=== PATIENT | female | born 1960 | race Caucasian/White ===

== ENCOUNTER → 2016-12-22 | Outpatient (CLI) | payer OTHER ==
--- NOTE | 2016-12-22 15:23 | NM ---
EXAMINATION TYPE: NM bone scan whole body DATE OF EXAM: 12/22/2016 COMPARISON: NONE HISTORY: Myalgia per order. All over pain per patient. History of left ankle fracture last year. Delayed whole-body scanning was performed following the injection of 26 mCi Tc 99m MDP. Images acqui red 3 hours post injection. Whole body images in anterior posterior projection as well as spot images of the thorax abdomen and pelvis and bilateral knees and ankles are acquired. FINDINGS: There is no suspicious scintigraphic uptake to the bone to suggest osseous metastatic disease or othe r significant abnormality. Increased uptake at level of right knee joint is felt to reflect product o f moderate to advanced degenerative change. IMPRESSION: As above
== END ==
LOC: RADNMMAIN 10:59
PROVIDERS: ATTEND Family Medicine
DX: M79.1 Myalgia (principal)
CPT/HCPCS: 78306; A9503

== ENCOUNTER 2017-01-20 09:46 | Emergency (ER) | payer OTHER ==
[2017-01-20] MEDS ORDERED: SODIUM CHLORIDE 0.9% 1,000 ML IV STA (10:45)
--- NOTE | 2017-01-20 10:53 | ED ---
Arrhythmia/Palpitations HPI - General Chief Complaint: Arrhythmia/Palpitations Stated Complaint: Heart Palps/Lt Leg lump Time Seen by Provider: 01/20/17 10:02 Source: patient, family, RN notes reviewed Mode of arrival: ambulatory Limitations: no limitations - History of Present Illness Initial Comments: This is a 56-year-old female who presents with complaints of palpitations for the past 4 days he has slowed down now which she also is had some pain in the left calf with some anterior lateral swelling to the proximal leg. Her physician was concerned about blood clots. Additionally the patient is to start thyroid medication sometime near future. She denies any fevers chills sweats chest pain shortness breath or other symptoms at this time. MD Complaint: palpitations - Related Data Home Medications Medication Instructions Recorded Confirmed HYDROcodone/IBUPROFEN 7.5-200 0.25 tab PO TID PRN 01/20/17 01/20/17 [Vicoprofen] Ibuprofen [Motrin] 400 mg PO BID PRN 01/20/17 01/20/17 Omeprazole 20 mg PO DAILY 01/20/17 01/20/17 Allergies Allergy/AdvReac Type Severity Reaction Status Date / Time acetaminophen [From Tylenol] Allergy Unknown Verified 01/20/17 10:22 amoxicillin [Amoxicillin] Allergy Unknown Verified 01/20/17 10:22 bee pollen Allergy Anaphylaxis Verified 01/20/17 10:22 hydromorphone HCl Allergy Unknown Verified 01/20/17 10:22 [From Dilaudid] Iodinated Contrast- Oral and Allergy Swelling Verified 01/20/17 10:22 IV Dye plastic Allergy Rash/Hives Uncoded 01/20/17 09:59 Review of Systems ROS Statement: Those systems with pertinent positive or pertinent negative responses have been documented in the HPI. ROS Other: All systems not noted in ROS Statement are negative. Past Medical History Past Medical History: Asthma, GERD/Reflux History of Any Multi-Drug Resistant Organisms: None Reported Past Surgical History: Bladder Surgery, Cholecystectomy, Hysterectomy, Orthopedic Surgery, Tonsillectomy Past Psychological History: No Psychological Hx Reported Smoking Status: Former smoker Past Alcohol Use History: None Reported Past Drug Use History: None Reported General Exam - General Exam Comments Initial Comments: This is a well-developed well-nourished awake alert oriented 3 female Limitations: no limitations General appearance: alert, in no apparent distress Head exam: Present: atraumatic, normocephalic, normal inspection Eye exam: Present: normal appearance, PERRL, EOMI. Absent: scleral icterus, conjunctival injection, periorbital swelling ENT exam: Present: normal exam, mucous membranes moist Neck exam: Present: normal inspection. Absent: tenderness, meningismus, lymphadenopathy Respiratory exam: Present: normal lung sounds bilaterally. Absent: respiratory distress, wheezes, rales, rhonchi, stridor Cardiovascular Exam: Present: regular rate, normal rhythm, normal heart sounds. Absent: systolic murmur, diastolic murmur, rubs, gallop, clicks GI/Abdominal exam: Present: soft, normal bowel sounds. Absent: distended, tenderness, guarding, rebound, rigid Extremities exam: Present: full ROM, normal capillary refill, other (Mild Tenderness with no edema there is an area approximately 3 cm in diameter to the proximal anterior lateral leg with no color change is mildly fluctuant consistent with either hematoma or lipoma-type finding.). Absent: tenderness, pedal edema, joint swelling, calf tenderness Back exam: Present: normal inspection Neurological exam: Present: alert, oriented X3, CN II-XII intact Psychiatric exam: Present: normal affect, normal mood Skin exam: Present: warm, dry, intact, normal color. Absent: rash Course Vital Signs 01/20/17 01/20/17 09:55 11:02 Temperature 97.5 F L Pulse Rate 72 74 Respiratory 16 18 Rate Blood Pressure 128/71 99/64 O2 Sat by Pulse 96 97 Oximetry EKG Findings - EKG Results: EKG: interpreted by ALEJA, sinus rhythm (Sinus rhythm rate is 68 DE interval 158 QRS 72 QT since QTC of 368/[address]-T wave configuration.) Medical Decision Making - Medical Decision Making I did discuss findings with the patient she remains asymptomatic she'll be discharged. She is following up with her Dr. she will return when necessary - Lab Data Result diagrams: 01/20/17 10:14 01/20/17 10:14 Lab Results 01/20/17 01/20/17 01/20/17 Range/Units 10:14 10:14 10:14 WBC 6.2 (3.8-10.6) k/uL RBC 4.21 (3.80-5.40) m/uL Hgb 14.2 (11.4-16.0) gm/dL Hct 39.9 (34.0-46.0) % MCV 94.8 (80.0-100.0) fL MCH 33.8 (25.0-35.0) pg MCHC 35.7 (31.0-37.0) g/dL RDW 12.2 (11.5-15.5) % Plt Count 217 (150-450) k/uL Neutrophils % 62 % Lymphocytes % 29 % Monocytes % 4 % Eosinophils % 2 % Basophils % 1 % Neutrophils # 3.8 (1.3-7.7) k/uL Lymphocytes # 1.8 (1.0-4.8) k/uL Monocytes # 0.3 (0-1.0) k/uL Eosinophils # 0.2 (0-0.7) k/uL Basophils # 0.0 (0-0.2) k/uL PT (9.0-12.0) sec INR (<1.2) APTT (22.0-30.0) sec D-Dimer (<0.60) mg/L FEU Sodium 141 (137-145) mmol/L Potassium 3.9 (3.5-5.1) mmol/L Chloride 104 (98-107) mmol/L Carbon Dioxide 25 (22-30) mmol/L Anion Gap 12 mmol/L BUN 11 (7-17) mg/dL Creatinine 0.66 (0.52-1.04) mg/dL Est GFR (MDRD) Af Amer >60 (>60 ml/min/1.73 sqM) Est GFR (MDRD) Non-Af >60 (>60 ml/min/1.73 sqM) Glucose 139 H (74-99) mg/dL Calcium 9.6 (8.4-10.2) mg/dL Magnesium 1.7 (1.6-2.3) mg/dL Total Bilirubin 0.4 (0.2-1.3) mg/dL AST 39 H (14-36) U/L ALT 57 H (9-52) U/L Alkaline Phosphatase 96 (38-126) U/L Total Creatine Kinase 52 (30-135) U/L CK-MB (CK-2) 0.3 (0.0-2.4) ng/mL CK-MB (CK-2) Rel Index 0.6 Troponin I <0.012 (0.000-0.034) ng/mL Total Protein 7.7 (6.3-8.2) g/dL Albumin 4.5 (3.5-5.0) g/dL TSH 2.190 (0.465-4.680) mIU/L 01/20/17 Range/Units 10:14 WBC (3.8-10.6) k/uL RBC (3.80-5.40) m/uL Hgb (11.4-16.0) gm/dL Hct (34.0-46.0) % MCV (80.0-100.0) fL MCH (25.0-35.0) pg MCHC (31.0-37.0) g/dL RDW (11.5-15.5) % Plt Count (150-450) k/uL Neutrophils % % Lymphocytes % % Monocytes % % Eosinophils % % Basophils % % Neutrophils # (1.3-7.7) k/uL Lymphocytes # (1.0-4.8) k/uL Monocytes # (0-1.0) k/uL Eosinophils # (0-0.7) k/uL Basophils # (0-0.2) k/uL PT 10.3 (9.0-12.0) sec INR 1.0 (<1.2) APTT 25.9 (22.0-30.0) sec D-Dimer 0.60 H (<0.60) mg/L FEU Sodium (137-145) mmol/L Potassium (3.5-5.1) mmol/L Chloride (98-107) mmol/L Carbon Dioxide (22-30) mmol/L Anion Gap mmol/L BUN (7-17) mg/dL Creatinine (0.52-1.04) mg/dL Est GFR (MDRD) Af Amer (>60 ml/min/1.73 sqM) Est GFR (MDRD) Non-Af (>60 ml/min/1.73 sqM) Glucose (74-99) mg/dL Calcium (8.4-10.2) mg/dL Magnesium (1.6-2.3) mg/dL Total Bilirubin (0.2-1.3) mg/dL AST (14-36) U/L ALT (9-52) U/L Alkaline Phosphatase (38-126) U/L Total Creatine Kinase (30-135) U/L CK-MB (CK-2) (0.0-2.4) ng/mL CK-MB (CK-2) Rel Index Troponin I (0.000-0.034) ng/mL Total Protein (6.3-8.2) g/dL Albumin (3.5-5.0) g/dL TSH (0.465-4.680) mIU/L - Radiology Data Radiology results: report reviewed (I did review the imaging and reports no acute findings.), image reviewed Disposition Clinical Impression: Palpitations Disposition: HOME SELF-CARE Condition: Good Instructions: Palpitations (ED) Referrals: Jacinto Hendricks DO [Primary Care Provider] - 1-2 days
[2017-01-20 11:04] VITALS: RESP 18
[2017-01-20 11:09] LABS: Basophils % (A) 1 %; CH 33.4; CHCM 35.3; Eosinophils # (A) 0.2 k/uL (0-0.7); Eosinophils % (A) 2 %; HCT 39.9 % (34.0-46.0); HDW 2.49; HGB 14.2 gm/dL (11.4-16.0); Luc # (Auto) 0.15; Luc % (Auto) 2; Lymphocytes # (A) 1.8 k/uL (1.0-4.8); Lymphocytes % (A) 29 %; MCH 33.8 pg (25.0-35.0); MCHC 35.7 g/dL (31.0-37.0); MCV 94.8 fL (80.0-100.0); Mean Platelet Volume 7.5; Monocytes # (A) 0.3 k/uL (0-1.0); Monocytes % (A) 4 %; Neutrophils # (A) 3.8 k/uL (1.3-7.7); Neutrophils % (A) 62 %; RBC 4.21 m/uL (3.80-5.40); RDW 12.2 % (11.5-15.5); WBC 6.2 k/uL (3.8-10.6); WBC (Perox) 5.89
[2017-01-20 11:21] LABS: ALT 57 U/L (9-52); AST 39 U/L (14-36); Alkaline Phosphatase 96 U/L (38-126); Anion Gap 12 mmol/L; Blood Urea Nitrogen 11 mg/dL (7-17); Calcium 9.6 mg/dL (8.4-10.2); Carbon Dioxide 25 mmol/L (22-30); Chloride 104 mmol/L (98-107); Glucose 139 mg/dL (74-99); Magnesium 1.7 mg/dL (1.6-2.3); Non-African American GFR(MDRD) >60 (>60 ml/min/1.73 sqM); Potassium 3.9 mmol/L (3.5-5.1); Sodium 141 mmol/L (137-145); Total Bilirubin 0.4 mg/dL (0.2-1.3); Total Protein 7.7 g/dL (6.3-8.2)
--- NOTE | 2017-01-20 11:23 | XR ---
EXAMINATION TYPE: XR chest 2V DATE OF EXAM: 01/20/2017 COMPARISON: 06/26/2012 HISTORY: 56-year-old female with dysrhythmia TECHNIQUE: PA and lateral views FINDINGS: Heart is normal size. Aorta and pulmonary vasculature are within normal limits. Mild interstitial pro minence is unchanged. Prominent first rib ends on both sides. This is also similar to prior. Some str janice lower lung areas of atelectasis. No consolidation or pleural effusion. Cholecystectomy clips. IMPRESSION: Chronic changes without acute cardiopulmonary process.
[2017-01-20 11:27] LABS: Partial Thromboplastin Time 25.9 sec (22.0-30.0); Prothrombin Time 10.3 sec (9.0-12.0)
[2017-01-20 11:30] LABS: Creatine Kinase 52 U/L (30-135)
[2017-01-20 11:44] LABS: Creatine Kinase MB 0.3 ng/mL (0.0-2.4); Troponin I <0.012 ng/mL (0.000-0.034)
--- NOTE | 2017-01-20 11:55 | US ---
EXAMINATION TYPE: US venous doppler duplex LE LT DATE OF EXAM: 01/20/2017 11:45 AM COMPARISON: None. CLINICAL HISTORY: 56-year-old female Pain. Lump inferior-lateral to knee. No hx of DVT or on blood t hinners SIDE PERFORMED: Left TECHNIQUE: The lower extremity deep venous system is examined utilizing real time linear array sonog ally with graded compression, doppler sonography and color-flow sonography. FINDINGS: VESSELS IMAGED: External Iliac Vein (EIV) Common Femoral Vein Deep Femoral Vein Greater Saphenous Vein * Femoral Vein Popliteal Vein Small Saphenous Vein * Proximal Calf Veins (* superficial vessels) Left Leg: Appears negative for DVT. Area of lump along the lateral aspect just below the knee was scanned. Hypoechoic lesion with internal medicine physician assistant al echoes seen, nonvascular = 4.3 x 3.9 x 1.0 cm IMPRESSION: 1. No evidence for DVT within the left lower extremity imaged from the groin to the upper calf. 2. Patient's palpable lump along the lateral aspect just below the knee shows a 4.3 cm elongated area with internal echoes, possible ganglion cyst. Consider MRI to further evaluate. A solid lesion is co nsidered unlikely given the ultrasound appearance.
[2017-01-20 12:21] VITALS: BP 103/63; PULSE 66; TEMP 97.2
== END 2017-01-20 12:29 | disposition home or self-care (01) ==
LOC: EC 09:46
DX: R00.2 Palpitations (principal); M79.89 Other specified soft tissue disorders; K21.9 Gastro-esophageal reflux disease without esophagitis; Z87.891 Personal history of nicotine dependence; Z79.899 Other long term (current) drug therapy; Z88.0 Allergy status to penicillin; Z88.5 Allergy status to narcotic agent; Z88.6 Allergy status to analgesic agent; Z91.030 Bee allergy status; Z91.048 Other nonmedicinal substance allergy status
CPT/HCPCS: 36415; 71020; 80053; 82550; 82553; 83735; 84443; 84484; 85025; 85379; 85610; 85730; 93005; 96360; 99285

== ENCOUNTER → 2018-04-08 | Outpatient (CLI) | payer BC ==
[2018-04-08 10:32] LABS: Basophils # (A) 0.1 k/uL (0-0.2); Basophils % (A) 1 %; Eosinophils # (A) 0.2 k/uL (0-0.7); Eosinophils % (A) 2 %; HCT 42.9 % (34.0-46.0); Lymphocytes # (A) 1.8 k/uL (1.0-4.8); Lymphocytes % (A) 23 %; MCH 32.4 pg (25.0-35.0); MCHC 32.6 g/dL (31.0-37.0); MCV 99.4 fL (80.0-100.0); Mean Platelet Volume 7.1; Monocytes # (A) 0.4 k/uL (0-1.0); Monocytes % (A) 5 %; Neutrophils # (A) 5.1 k/uL (1.3-7.7); Neutrophils % (A) 66 %; Platelet Count 216 k/uL (150-450); RBC 4.32 m/uL (3.80-5.40); RDW 12.1 % (11.5-15.5); WBC 7.7 k/uL (3.8-10.6)
[2018-04-08 17:21] LABS: Albumin 4.5 g/dL (3.80-4.90); Albumin/Globulin Ratio 1.96 (1.20-2.10); Anion Gap 5.9 mmol/L (4.00-12.00); Calcium 9.3 mg/dL (8.7-10.3); Carbon Dioxide 29.1 mmol/L (21.6-31.8); Globulin 2.3 g/dL (2.1-3.7); Potassium 4.2 mmol/L (3.5-5.5); Total Bilirubin 0.4 mg/dL (0.2-1.2); Total Protein 6.8 g/dL (6.2-8.2)
[2018-04-08 19:21] LABS: Hemoglobin A1C 5.8 % (4.0-6.0)
[2018-04-09 15:15] LABS: Hepatitis A Antibody IgM Non-Reactive (Non-Reactive); Hepatitis B Core IgM Non-Reactive (Non-Reactive)
== END | disposition home or self-care (01) ==
LOC: LABWHC1 09:53
PROVIDERS: ATTEND Family Medicine
DX: J20.9 Acute bronchitis, unspecified (principal); M25.562 Pain in left knee; M25.561 Pain in right knee
CPT/HCPCS: 36415; 80053; 80074; 83036; 84439; 84443; 85025; 85379

== ENCOUNTER → 2019-02-15 | Outpatient (CLI) | payer BC ==
--- NOTE | 2019-02-15 11:02 | XR ---
EXAMINATION TYPE: XR shoulder complete RT DATE OF EXAM: 02/15/2019 CLINICAL HISTORY: Fall injury 10 days ago with right shoulder pain. TECHNIQUE: Three views of the right shoulder are obtained. COMPARISON: None. FINDINGS: There is no acute fracture/dislocation evident in the right shoulder. Mild narrowing acrom ioclavicular and glenohumeral joints. The visualized ribs are intact and unremarkable. IMPRESSION: There is no acute fracture or dislocation in the right shoulder.
--- NOTE | 2019-02-15 11:04 | XR ---
EXAMINATION TYPE: XR ribs RT DATE OF EXAM: 02/15/2019 COMPARISON: Chest x-ray September 20, 2016. HISTORY: Follow injury 10 days ago with right-sided rib pain. TECHNIQUE: A frontal and oblique images of the right-sided ribs are acquired. FINDINGS: No acute displaced right-sided rib fractures are clearly seen. Visualized right lung is cortez ar. Cholecystectomy clips are redemonstrated. IMPRESSION: No acute displaced right-sided rib fractures are identified.
== END | disposition home or self-care (01) ==
LOC: RADXRMAIN 09:43
PROVIDERS: ATTEND Family Medicine
DX: M25.511 Pain in right shoulder (principal); R07.81 Pleurodynia

== ENCOUNTER 2019-03-16 20:04 | Observation (INO) | payer BC ==
[2019-03-16] MEDS ORDERED: SODIUM CHLORIDE 0.9% 1,000 ML IV STA (20:59)
[2019-03-16] MEDS ORDERED: KETOROLAC 30 MG/ML 1 ML VIAL IVP STA (20:59)
[2019-03-16 21:27] LABS: ALT 39 U/L (9-52); AST 39 U/L (14-36); African American GFR (CKD) >90 (>60 ml/min/1.73 sqM); Albumin 4.4 g/dL (3.5-5.0); Alkaline Phosphatase 93 U/L (38-126); Anion Gap 11 mmol/L; Blood Urea Nitrogen 24 mg/dL (7-17); Calcium 9.8 mg/dL (8.4-10.2); Carbon Dioxide 23 mmol/L (22-30); Chloride 100 mmol/L (98-107); Glucose 126 mg/dL (74-99); Magnesium 1.9 mg/dL (1.6-2.3); Potassium 4.8 mmol/L (3.5-5.1); Sodium 134 mmol/L (137-145); Total Bilirubin 0.7 mg/dL (0.2-1.3); Total Protein 7.8 g/dL (6.3-8.2)
[2019-03-16 21:31] LABS: Basophils % (A) 0 %; Eosinophils # (A) 0.1 k/uL (0-0.7); Eosinophils % (A) 1 %; HCT 42.8 % (34.0-46.0); HGB 15.1 gm/dL (11.4-16.0); Lymphocytes % (A) 12 %; MCH 33.7 pg (25.0-35.0); MCHC 35.2 g/dL (31.0-37.0); MCV 95.6 fL (80.0-100.0); Mean Platelet Volume 6.9; Monocytes # (A) 0.9 k/uL (0-1.0); Monocytes % (A) 5 %; Neutrophils # (A) 13.6 k/uL (1.3-7.7); Neutrophils % (A) 81 %; Platelet Count 271 k/uL (150-450); RBC 4.48 m/uL (3.80-5.40); RDW 11.7 % (11.5-15.5); WBC 16.8 k/uL (3.8-10.6)
[2019-03-16 21:33] LABS: INR 1.4 (<1.2); Partial Thromboplastin Time 32.4 sec (22.0-30.0)
--- NOTE | 2019-03-16 21:43 | XR ---
EXAMINATION TYPE: XR chest 2V DATE OF EXAM: 03/16/2019 COMPARISON: 01/20/2017 HISTORY: Chest pain TECHNIQUE: Frontal and lateral views of the chest are obtained. FINDINGS: Heart and mediastinum are normal. Lungs are clear. Diaphragm is normal. Bony thorax appear s normal. There are chest leads. IMPRESSION: Normal chest. No change.
[2019-03-16 22:00] LABS: Appearance,Urine Clear (Clear); Bilirubin,Urine Negative (Negative); Blood,Urine Negative (Negative); Color,Urine Yellow; Glucose,Urine (UA) Negative (Negative); Ketones,Urine Negative (Negative); Leukocyte Esterase,Urine Large (Negative); Mucus,Urine Few /hpf; Nitrite,Urine Negative (Negative); Protein,Urine Trace (Negative); RBC,Urine 5 /hpf (0-5); Specific Gravity,Urine 1.026 (1.001-1.035); Squamous Epithelial Cell,Urine 4 /hpf (0-4); Urobilinogen,Urine <2.0 mg/dL (<2.0)
--- NOTE | 2019-03-16 22:03 | ED ---
Chest Pain HPI <Joao Stone - Last Filed: 03/16/19 22:18> - General Source: patient Mode of arrival: ambulatory Limitations: no limitations <Amanda Bautista - Last Filed: 03/16/19 22:53> - General Chief Complaint: Chest Pain Stated Complaint: Chest Pain Time Seen by Provider: 03/16/19 20:15 - History of Present Illness Initial Comments: Patient is a 59-year-old female presenting to the emergency department complaints of chest pain has been intermittent 3 days. Patient describes the pain as sharp and pressure feeling underneath her ribs bilaterally as well is into her back bilaterally. Patient also feels the pain at times and her sternum area and on both sides of her chest. Patient denies any injuries or trauma to her chest. Patient states the pain is not constant and comes and goes. Patient can be at rest when the pain comes on. Patient has no prior history of heart disease, has had normal stress tests. Patient states the pain is similar to when she had pneumonia in the past. Patient has surgical history of cholecystectomy, hysterectomy, adhesion removal. Patient does have history of GERD and takes omeprazole. Patient denies shortness of breath, cough, nausea, vomiting, lower abdominal pain, urinary symptoms. Patient has no other complaints at this time. Upon arrival to ER, vital signs are stable. (Amanda Bautista) - Related Data Home Medications Medication Instructions Recorded Confirmed Omeprazole 20 mg PO BID 01/20/17 03/16/19 Calcium Carbonate [Tums] 1,000 mg PO TID PRN 03/16/19 03/16/19 traMADol HCL 50 mg PO DAILY PRN 03/16/19 03/16/19 Allergies Allergy/AdvReac Type Severity Reaction Status Date / Time acetaminophen [From Tylenol] Allergy Unknown Verified 03/16/19 22:48 amoxicillin [Amoxicillin] Allergy Unknown Verified 03/16/19 22:48 bee pollen Allergy Anaphylaxis Verified 03/16/19 22:48 hydromorphone HCl Allergy Unknown Verified 03/16/19 22:48 [From Dilaudid] Iodinated Contrast Media Allergy Swelling Verified 03/16/19 22:48 [Iodinated Contrast- Oral and IV Dye] plastic Allergy Rash/Hives Uncoded 03/16/19 20:11 Review of Systems ROS Other: All systems not noted in ROS Statement are negative. <Joao Stone - Last Filed: 03/16/19 22:18> ROS Other: All systems not noted in ROS Statement are negative. <Amanda Bautista - Last Filed: 03/16/19 22:53> ROS Statement: Those systems with pertinent positive or pertinent negative responses have been documented in the HPI. EKG Findings - EKG Comments: EKG Findings:: Ventricular rate 54, SC interval 134, QTC 371. Sinus bradycardia. No ST segment changes. Compared to prior EKG in January 2017. <Amanda Bautista - Last Filed: 03/16/19 22:53> Past Medical History Past Medical History: Asthma, GERD/Reflux History of Any Multi-Drug Resistant Organisms: None Reported Past Surgical History: Bladder Surgery, Cholecystectomy, Hysterectomy, Joint Replacement, Orthopedic Surgery, Tonsillectomy Additional Past Surgical History / Comment(s): lt knee replacement Past Psychological History: No Psychological Hx Reported Smoking Status: Former smoker Past Alcohol Use History: None Reported Past Drug Use History: None Reported <Amanda Bautista - Last Filed: 03/16/19 22:53> General Exam Limitations: no limitations <Amanda Bautista - Last Filed: 03/16/19 22:53> - General Exam Comments Initial Comments: GENERAL: Well-appearing, well-nourished and in no acute distress. HEAD: Atraumatic, normocephalic. EYES: Pupils equal round and reactive to light, extraocular movements intact, sclera anicteric, conjunctiva are normal. ENT: TMs normal, nares patent, oropharynx clear without exudates. Moist mucous membranes. NECK: Normal range of motion, supple without lymphadenopathy or JVD. LUNGS: Breath sounds clear to auscultation bilaterally and equal. No wheezes rales or rhonchi. HEART: Regular rate and rhythm without murmurs, rubs or gallops. No pain with palpation of the sternum. ABDOMEN: Soft, nontender, normoactive bowel sounds. No guarding, no rebound. No masses appreciated. No pain with palpation of bilateral ribs or thoracic area. : Deferred EXTREMITIES: Normal range of motion, no pitting or edema. No clubbing or cyanosis. NEUROLOGICAL: Cranial nerves II through XII grossly intact. Normal speech, normal gait. PSYCH: Normal mood, normal affect. SKIN: Warm, Dry, normal turgor, no rashes or lesions noted. (Amanda Bautista) Course <Joao Stone - Last Filed: 03/16/19 22:18> Vital Signs 03/16/19 03/16/19 20:09 20:39 Temperature 97.5 F L Pulse Rate 59 L Pulse Rate [ 61 Vice President Of Advertising ] Respiratory 20 Rate Blood Pressure 123/80 O2 Sat by Pulse 99 Oximetry - Reevaluation(s) Reevaluation #1: 03/16/19 22:18 Case discussed with practitioner Lily. Chart and results reviewed. D-dimer will be added. Case also discussed with Dr. Calderon, who will admit covering for Dr. Hendricks. (Joao Stone) Chest Pain MDM <Amanda Bautista - Last Filed: 03/16/19 22:53> - [facility] Patient is a 59-year-old female presenting with chest pain intermittent for 3 days. Patient describes the pain as pressure and sharp is intermittent. Patient has no prior history of heart disease. Patient had a stress test performed approximately 8-10 years ago which was normal. EKG shows slight bradycardia, otherwise normal. CBC shows white count 16.8. Coags INR is 1.4. D-dimer is normal 0.57. CMP is within normal limits. Troponin is normal at 0.012. UA shows 17 wbc's. Urine will be cultured and is pending at this time. Patient is still having symptoms intermittently. Case discussed with Dr. Stone. Patient will be admitted with cardio consult. Patient accepted by Dr. Calderon. (Amanda Bautista) Disposition <Joao Stone - Last Filed: 03/16/19 22:18> Is patient prescribed a controlled substance at d/c from ED?: No Decision Date: 03/16/19 Decision Time: 22:53 <Amanda Bautista - Last Filed: 03/16/19 22:53> Clinical Impression: Chest pain, Leukocytosis Disposition: ADMITTED IP TO THIS HOSP Condition: Stable Referrals: Jacinto Hendricks DO [Primary Care Provider] - 1-2 days
[2019-03-16] MEDS ORDERED: NITROGLYCERIN SL TABS 0.4 MG TAB SUBLINGUAL PRN (22:44)
[2019-03-16] MEDS ORDERED: CALCIUM CARBONATE 500 MG CHEWABLE PO PRN (23:35)
[2019-03-16] MEDS ORDERED: traMADol 50 MG TAB PO PRN (23:35)
[2019-03-17] MEDS: NITROFURANTOIN MONOHYD/M-CRYST 100 MG CAP PO SCH ×2 (01:11→12:44)
[2019-03-17 03:34] VITALS: RESP 18
[2019-03-17 03:49] LABS: Cholesterol 182 mg/dL (<200); HDL Cholesterol 49 mg/dL (40-60); LDL Cholesterol,Calculated 113 mg/dL (0-99); Triglycerides 101 mg/dL (<150)
[2019-03-17] MEDS: PANTOPRAZOLE 40 MG TABLET PO SCH ×2 (06:29→06:30)
[2019-03-17] MEDS ORDERED: ASPIRIN 325 MG TAB PO SCH (09:00)
--- NOTE | 2019-03-17 09:46 | P.HPIM ---
History of Present Illness H&P Date: 03/17/19 Chief Complaint: Atypical chest pain, severe have a hernia, asthma hyperglycemia 59-year-old female mildly overweight [address] Hendricks patient with past medical history of asthma, GERD and hiatal hernia, hyperlipidemia and hyperglycemia who had hiatal hernia for many years takes omeprazole twice a day with multiple Tums every day to subtle down her acid reflux and stomach pain. Patient developed to have multiple episode of recurrent midsternal chest pain ra diating toward the back subtle down with Tums and symptoms are much worse after food. Symptoms were not exertion related or position related. Patient had nausea with no vomiting no palpitations no cold sweat no radiation to the upper extremity or the left hand. Patient doesn't remember having stress test in the past or any cardiac workup. Ended up coming to the emergency room with above symptoms her troponin was negative no major change in EKG found to have mildly elevated white blood cell UA was positive was diagnosed with UTI as well started on Macrodantin and admitted to the hospital for observation. Review of Systems CONSTITUTIONAL: Well-developed no acute respiratory distress. Mildly overweight EYES: No icterus sclerae, no conjunctivitis. EARS, NOSE, MOUTH, THROAT, and FACE: No sore throat, lymphadenopathy, carotid bruits or deformity. RESPIRATORY: No SOB cough or wheezes. CARDIOVASCULAR: No CP, Palpitation, PND, Orthopnea, or angina. GASTROINTESTINAL: Positive abdominal pain with heartburn and nausea, Nausea or vomiting, no Diarrhea or constipation, No GI Bleed, no distention or masses. GENITOURINARY: Negative for Hematuria or UTI, no kidney stones. INTEGUMENT/BREAST: Negative for any muscular injury with mild osteoarthritis.. HEMATOLOGIC/LYMPHATIC: Negative for bleed or purpura. MUSCULOSKELTAL: Negative for Myalgia or arthralgia. NEURLOGICAL: No LOC, Sz or syncope, blurred vision dizziness or abnormality.. BEHAVIORAL/PSYCH: Negative. ENDOCRINE: Negative. Past Medical History Past Medical History: Asthma, GERD/Reflux History of Any Multi-Drug Resistant Organisms: None Reported Past Surgical History: Bladder Surgery, Cholecystectomy, Hysterectomy, Joint Replacement, Orthopedic Surgery, Tonsillectomy Additional Past Surgical History / Comment(s): lt knee replacement Past Psychological History: No Psychological Hx Reported Smoking Status: Former smoker Past Alcohol Use History: None Reported Past Drug Use History: None Reported Medications and Allergies Home Medications Medication Instructions Recorded Confirmed Type Omeprazole 20 mg PO BID 01/20/17 03/16/19 History Calcium Carbonate [Tums] 1,000 mg PO TID PRN 03/16/19 03/16/19 History traMADol HCL 50 mg PO DAILY PRN 03/16/19 03/16/19 History Allergies Allergy/AdvReac Type Severity Reaction Status Date / Time acetaminophen [From Tylenol] Allergy Unknown Verified 03/16/19 22:48 amoxicillin [Amoxicillin] Allergy Unknown Verified 03/16/19 22:48 bee pollen Allergy Anaphylaxis Verified 03/16/19 22:48 hydromorphone HCl Allergy Unknown Verified 03/16/19 22:48 [From Dilaudid] Iodinated Contrast Media Allergy Swelling Verified 03/16/19 22:48 [Iodinated Contrast- Oral and IV Dye] plastic Allergy Rash/Hives Uncoded 03/16/19 20:11 Physical Exam Vitals: Vital Signs Temp Pulse Pulse Pulse Resp BP BP 03/17/19 03:33 97.8 F 54 L 18 112/74 03/17/19 03:28 53 L 17 03/16/19 23:30 97.4 F L 67 54 L 18 123/84 03/16/19 22:56 98 F 50 L 16 126/86 03/16/19 20:39 61 03/16/19 20:09 97.5 F L 59 L 20 123/80 Pulse Ox 03/17/19 03:33 95 03/17/19 03:28 03/16/19 23:30 100 03/16/19 22:56 100 03/16/19 20:39 03/16/19 20:09 99 Intake and Output 03/16/19 03/16/19 03/17/19 14:59 22:59 06:59 Intake Total 240 Balance 240 Intake: Oral 240 Other: # Voids 1 Weight 78.018 kg General Appearance: Alert, cooperative, no distress, appears stated age. Mild overweight Neck HEENT: Supple, no lymphadenopathy, no thyroid enlargement, no carotid bruits. Lungs: Decreased breath some bilaterally with fine rhonchi no crackles positive fine wheezes Chest Wall: Chest wall normal expansion with deep inspiration no tenderness and no deformity was found on exam, no costochondral pain or discomfort. Heart: Regular rate and rhythm, S1, S2 normal, no murmur, rub or gallop. Back: Symmetric, no curvature, ROM normal, no CVA tenderness. Abdomen: Soft positive bowel sound mild discomfort in the epigastric area no rebound rigidity or masses no other deformity in the abdominal area no sign of ascites no hepatosplenomegaly. Extremities: Extremities normal, atraumatic, no cyanosis or edema. Pulses: 2+ and symmetric. Skin: Skin color, texture, tugor normal, no rashes or lesions. Neurologic: Alert oriented x3 cranial nerves II through XII intact, no motor deficit, no abnormal balance or gait. Results CBC & Chem 7: 03/16/19 20:36 03/16/19 20:36 Labs: Abnormal Lab Results - Last 24 Hours (Table) 03/16/19 03/16/19 03/16/19 Range/Units 20:36 20:36 20:36 WBC 16.8 H (3.8-10.6) k/uL Neutrophils # 13.6 H (1.3-7.7) k/uL PT 14.0 H (9.0-12.0) sec INR 1.4 H (<1.2) APTT 32.4 H (22.0-30.0) sec Sodium 134 L (137-145) mmol/L BUN 24 H (7-17) mg/dL Glucose 126 H (74-99) mg/dL AST 39 H (14-36) U/L LDL Cholesterol, Calc (0-99) mg/dL Urine Protein (Negative) Ur Leukocyte Esterase (Negative) Urine WBC (0-5) /hpf Urine Mucus (None) /hpf 03/16/19 03/17/19 Range/Units 21:47 03:26 WBC (3.8-10.6) k/uL Neutrophils # (1.3-7.7) k/uL PT (9.0-12.0) sec INR (<1.2) APTT (22.0-30.0) sec Sodium (137-145) mmol/L BUN (7-17) mg/dL Glucose (74-99) mg/dL AST (14-36) U/L LDL Cholesterol, Calc 113 H (0-99) mg/dL Urine Protein Trace H (Negative) Ur Leukocyte Esterase Large H (Negative) Urine WBC 17 H (0-5) /hpf Urine Mucus Few H (None) /hpf Microbiology - Last 24 Hours (Table) 03/16/19 21:47 Urine Culture - Preliminary Urine,Voided Thrombosis Risk Factor Assmnt - DVT/VTE Prophylaxis DVT/VTE Prophylaxis: Mechanical Prophylaxis ordered - Choose All That Apply Each Factor Represents 1 point: Age 41-60 years Thrombosis Risk Factor Assessment Total Risk Factor Score: 1 Thrombosis Risk Factor Assessment Level: Low Risk Assessment and Plan Plan: 1 atypical chest pain: With very low probability for cardiac disease her symptoms are more GI than cardiac. Patient will be seen cardiology troponin 3 might do an echocardiogram if there is any wall motion abnormality further stress test will be recommended if not cardiology decided to go for a stress echo she might do it before leaving the hospital today. 2 severe symptom of hiatal hernia with severe GERD not control with twice a day omeprazole: Patient should be referred and seen GI and should go for an outpatient EGD to see if she had any sign of Hein esophagus beside having large happen hernia, switch her PPI to pantoprazole and patient can benefit from starting Reglan 3 times a day as a trial to see if it controlled her symptoms if agreeable by her PCP as an outpatient. In the meanwhile can take H2 susana in the evening beside PPI in the morning only. 3 history of asthma: Well controlled lately she still doing rescue inhaler as needed. 4 mild leukocytosis: Most likely from UTI UA was positive patient will be continue Macrodantin for total of 3-7 days and follow up UA at her PCP in 2 weeks. 5 mild hyperglycemia: On diet control. 6 chronic pain syndrome: Has been on tramadol, tramadol might been causing slight gastroparesis lately which should consider to slow down on it may be switched to Tylenol product as needed for arthritis. 7 GI prophylaxis: Patient is on PPI already. 8 DVT prophylaxis: Patient will have knee-high LIN hose and Venodyne boots. CODE STATUS: Full code. Admit patient to observation for one night.
[2019-03-17 11:55] VITALS: BP 115/72; PULSE 55; TEMP 97.5
--- NOTE | 2019-03-17 13:00 | ECHOF ---
Referral Reason:cp, sob MEASUREMENTS -------- HEIGHT: 154.9 cm WEIGHT: 77.6 kg BP: 104/67 RVIDd: 3.0 cm (< 3.3) IVSd: 1.3 cm (0.6 - 1.1) LVIDd: 4.0 cm (3.9 - 5.3) LVPWd: 1.3 cm (0.6 - 1.1) IVSs: 1.6 cm LVIDs: 2.7 cm LVPWs: 1.6 cm LA Diam: 3.2 cm (2.7 - 3.8) LAESV Index (A-L): 18.17 ml/m Ao Diam: 2.7 cm (2.0 - 3.7) AV Cusp: 2.0 cm (1.5 - 2.6) MV EXCURSION: 13.666 mm (> 18.000) MV EF SLOPE: 89 mm/s (70 - 150) EPSS: 0.6 cm MV E Luca: 0.90 m/s MV DecT: 216 ms MV A Luca: 0.73 m/s MV E/A Ratio: 1.24 RAP: 5.00 mmHg RVSP: 24.18 mmHg TAPSE: 17.01 mm FINDINGS -------- Sinus rhythm. This was a technically good study. The left ventricular size is normal. There is mild concentric left ventricular hypertrophy. Overa ll left ventricular systolic function is normal with, an EF between 60 - 65 %. The diastolic fillin g pattern is normal for the age of the patient 10.16. The right ventricle is normal in size. Normal LA size by volume 22+/-6 ml/m2. The right atrium is normal in size. Aneurysmal Interatrial septum. The aortic valve is trileaflet and appears structurally normal. There is trace mitral regurgitation. Mild tricuspid regurgitation present. Right ventricular systolic pressure is normal at < 35 mmHg. Trace/mild (physiologic) pulmonic regurgitation. The aortic root size is normal. Normal inferior vena cava with normal inspiratory collapse consistent with estimated right atrial pre ssure of 5 mmHg. There is no pericardial effusion. CONCLUSIONS -------- 1. Sinus rhythm. 2. This was a technically good study. 3. The left ventricular size is normal. 4. There is mild concentric left ventricular hypertrophy. 5. Overall left ventricular systolic function is normal with, an EF between 60 - 65 %. 6. The diastolic filling pattern is normal for the age of the patient 10.16 7. The right ventricle is normal in size. 8. Normal LA size by volume 22+/-6 ml/m2. 9. The right atrium is normal in size. 10. Aneurysmal Interatrial septum. 11. The aortic valve is trileaflet and appears structurally normal. 12. There is trace mitral regurgitation. 13. Mild tricuspid regurgitation present. 14. Right ventricular systolic pressure is normal at < 35 mmHg. 15. Trace/mild (physiologic) pulmonic regurgitation. 16. The aortic root size is normal. 17. Normal inferior vena cava with normal inspiratory collapse consistent with estimated right atrial pressure of 5 mmHg. 18. There is no pericardial effusion. CRITICAL CARE UNIT NURSE: Michelle Ash RDCS
--- NOTE | 2019-03-17 13:37 | ECHOS ---
STRESS ECHOCARDIOGRAM DATE OF SERVICE: 03/17/2019 INDICATIONS: Chest pain. MEDICATIONS: BASELINE HEART RATE: 52 BASELINE BLOOD PRESSURE: 103/59 MAXIMUM HEART RATE: 146 MAXIMUM BLOOD PRESSURE: 165/91 85% MPHR: 139 100% MPHR: 163 METS: 8.1 MAXIMUM STAGE REACHED: III TOTAL EXERCISE TIME: 8 minutes CLINICAL INFORMATION: Patient was exercised for a total period of 8 minutes. The peak heart rate of 146 was achieved. Maximum blood pressure of 165/91 mmHg was noted. The resting EKG shows normal sinus rhythm with normal MS interval and QRS duration and normal ST-T waves. No ST-segment depression suggestive of ischemia is noted. Occasional PVCs are noted. The baseline echocardiographic images reveals normal left ventricular chamber size with normal left ventricular systolic function. In the immediate post exercise period, normal increase in the wall thickness and contractility is noted. FINAL IMPRESSION: This stress echocardiographic study is negative for stress-induced ischemia. Patient's exercise tolerance is normal. The patient did not complain of any chest pain during the test. MMODL / IJN: [id number] /
--- NOTE | 2019-03-17 13:38 | P.CRDCN ---
History of Present Illness History of present illness: This is a pleasant 59-year-old female past medical history significant for gastroesophageal reflux disease and asthma. She denies prior history of coronary artery disease, hypertension, dyslipidemia or diabetes mellitus. We've been asked to see her in consultation secondary to chest discomfort. She states for the previous 3 days she has been experiencing a tight squeezing sensation around her chest and torso. The symptoms have been occurring intermittently approximately 30 minutes after eating. She would take Tums and the symptoms would improve mildly however they would return after about 30 minutes. This is not associated with shortness of breath, dizziness, nausea, vomiting, palpitations or diaphoresis. The pain would intensify with deep inspiration. EKG reveals sinus bradycardia heart rate of [address] or T wave abnormalities noted. Chest x-ray is negative for an acute cardiopulmonary process. Laboratory data reviewed, WBC 16.8, hemoglobin 15.1, platelets 271, d-dimer 0.57 with sodium 134, potassium 4.8, creatinine 0.53, magnesium 1.9, cardiac enzymes negative 3, LDL 113. She takes no daily cardiac medications. At the time of my exam: CONSTITUTIONAL: Denies fever. Denies chills. EYES: Denies blurred vision. Denies vision changes. Denies eye pain. EARS, NOSE, MOUTH & THROAT: Denies headache. Denies sore throat. Denies ear pain. CARDIOVASCULAR: Denies chest pain. Denies shortness of breath. Denies orthopnea. Denies PND. Denies palpitations. RESPIRATORY: Denies cough. GASTROINTESTINAL: Denies abdominal pain. Denies diarrhea. Denies constipation. Denies nausea. Denies vomiting. MUSCULOSKELETAL: Denies myalgias. INTEGUMENTARY: Denies pruitis. Denies rash. NEUROLOGIC: Denies numbness. Denies tingling. Denies weakness. PSYCHIATRIC: Denies anxiety. Denies depression. ENDOCRINE: Denies fatigue. Denies weight change. Denies polydipsia. Denies polyurina. GENITOURINARY: Denies burning, hematuria or urgency with micturation. HEMATOLOGIC: Denies history of anemia. Denies bleeding. Blood pressure 115/72 heart rate 55 afebrile maintaining oxygen saturation on room air GENERAL: This is a 59-year-old female in no apparent distress at the time of my examination. HEENT: Head is atraumatic, normocephalic. Pupils are equal, round. Sclerae anicteric. Conjunctivae are clear. Mucous membranes of the mouth are moist. Neck is supple. There is no jugular venous distention. No carotid bruit is heard. LUNGS: Clear to auscultation no wheezes, rales or rhonchi. No chest wall tenderness is noted on palpation or with deep breathing. HEART: Regular rate and rhythm without murmurs, rubs or gallops. S1 and S2 heard. ABDOMEN: Soft, nontender. Bowel sounds are heard. No organomegaly noted. EXTREMITIES: No evidence of peripheral edema and no calf tenderness noted. VASCULAR: Radial and dorsalis pedis pulses palpated, no evidence of clubbing. NEUROLOGIC: Patient is awake, alert and oriented x3. ASSESSMENT Chest pain, atypical. An acute coronary event has been ruled out. Symptoms likely related to underlying GI etiology. History of gastroesophageal reflux disease Dyslipidemia PLAN An acute coronary event has been ruled out. Obtain 2-D echocardiogram and Doppler study to assess cardiac structure and function. Perform stress echocardiogram to assess her stress induced cardiac ischemia. Consider possible GI evaluation. Stress test is normal she is stable from a cardiac perspective. Lifestyle modifications are recommended in the form of diet and exercise for lowering of LDL cholesterol. Thank you kindly for this consultation. Nurse Practitioner note has been reviewed, I agree with a documented findings and plan of care. Patient was seen and examined. Past Medical History Past Medical History: Asthma, GERD/Reflux History of Any Multi-Drug Resistant Organisms: None Reported Past Surgical History: Bladder Surgery, Cholecystectomy, Hysterectomy, Joint Replacement, Orthopedic Surgery, Tonsillectomy Additional Past Surgical History / Comment(s): lt knee replacement Past Psychological History: No Psychological Hx Reported Smoking Status: Former smoker Past Alcohol Use History: None Reported Past Drug Use History: None Reported Medications and Allergies Home Medications Medication Instructions Recorded Confirmed Type Omeprazole 20 mg PO BID 01/20/17 03/16/19 History Calcium Carbonate [Tums] 1,000 mg PO TID PRN 03/16/19 03/16/19 History traMADol HCL 50 mg PO DAILY PRN 03/16/19 03/16/19 History Allergies Allergy/AdvReac Type Severity Reaction Status Date / Time acetaminophen [From Tylenol] Allergy Unknown Verified 03/16/19 22:48 amoxicillin [Amoxicillin] Allergy Unknown Verified 03/16/19 22:48 bee pollen Allergy Anaphylaxis Verified 03/16/19 22:48 hydromorphone HCl Allergy Unknown Verified 03/16/19 22:48 [From Dilaudid] Iodinated Contrast Media Allergy Swelling Verified 03/16/19 22:48 [Iodinated Contrast- Oral and IV Dye] plastic Allergy Rash/Hives Uncoded 03/16/19 20:11 Physical Exam Vitals: Vital Signs Temp Pulse Pulse Pulse Resp BP BP 03/17/19 07:15 97.7 F 56 L 18 03/17/19 03:33 97.8 F 54 L 18 112/74 03/17/19 03:28 53 L 17 03/16/19 23:30 97.4 F L 67 54 L 18 123/84 03/16/19 22:56 98 F 50 L 16 126/86 03/16/19 20:39 61 03/16/19 20:09 97.5 F L 59 L 20 123/80 BP Pulse Ox 03/17/19 07:15 104/67 98 03/17/19 03:33 95 03/17/19 03:28 03/16/19 23:30 100 03/16/19 22:56 100 03/16/19 20:39 03/16/19 20:09 99 Intake and Output 03/16/19 03/17/19 03/17/19 22:59 06:59 14:59 Intake Total 240 Balance 240 Intake: Oral 240 Other: # Voids 1 Weight 78.018 kg Results 03/16/19 20:36 03/16/19 20:36 Cardiac Enzymes 03/16/19 03/16/19 03/17/19 Range/Units 20:36 20:36 03:26 AST 39 H (14-36) U/L Troponin I <0.012 <0.012 (0.000-0.034) ng/mL Coagulation 03/16/19 Range/Units 20:36 PT 14.0 H (9.0-12.0) sec APTT 32.4 H (22.0-30.0) sec Lipids 03/17/19 Range/Units 03:26 Triglycerides 101 (<150) mg/dL Cholesterol 182 (<200) mg/dL HDL Cholesterol 49 (40-60) mg/dL CBC 03/16/19 Range/Units 20:36 WBC 16.8 H (3.8-10.6) k/uL RBC 4.48 (3.80-5.40) m/uL Hgb 15.1 (11.4-16.0) gm/dL Hct 42.8 (34.0-46.0) % Plt Count 271 (150-450) k/uL Comprehensive Metabolic Panel 03/16/19 Range/Units 20:36 Sodium 134 L (137-145) mmol/L Potassium 4.8 (3.5-5.1) mmol/L Chloride 100 (98-107) mmol/L Carbon Dioxide 23 (22-30) mmol/L BUN 24 H (7-17) mg/dL Creatinine 0.53 (0.52-1.04) mg/dL Glucose 126 H (74-99) mg/dL Calcium 9.8 (8.4-10.2) mg/dL AST 39 H (14-36) U/L ALT 39 (9-52) U/L Alkaline Phosphatase 93 (38-126) U/L Total Protein 7.8 (6.3-8.2) g/dL Albumin 4.4 (3.5-5.0) g/dL Current Medications Generic Name Dose Route Start Last Admin Trade Name Freq PRN Reason Stop Dose Admin Aspirin 325 mg 03/17/19 09:00 Aspirin PO DAILY MANUELITO Calcium Carbonate/Glycine 1,000 mg 03/16/19 23:35 Tums PO TID PRN Heartburn Nitrofurantoin Macrocrystals 100 mg 03/17/19 00:15 03/17/19 01:11 Macrobid PO 03/24/19 00:16 100 mg BID MANUELITO Administration Nitroglycerin 0.4 mg 03/16/19 22:44 Nitrostat SUBLINGUAL Q5M PRN Chest Pain Pantoprazole Sodium 40 mg 03/17/19 07:30 03/17/19 06:30 Protonix PO 40 mg DAILY@0730 MANUELITO Administration Tramadol HCl 50 mg 03/16/19 23:35 03/17/19 01:14 Ultram PO 50 mg DAILY PRN Administration Pain Intake and Output 03/16/19 03/17/19 03/17/19 22:59 06:59 14:59 Intake Total 240 Balance 240 Intake: Oral 240 Other: # Voids 1 Weight 78.018 kg 03/16/19 20:36 03/16/19 20:36
== END 2019-03-17 16:00 | disposition home or self-care (01) ==
LOC: EC 20:04 → 1SOBS 22:53
PROVIDERS: ADMIT Internal Medicine Geriatric Medicine; ATTEND Internal Medicine Geriatric Medicine
DX: R07.89 Other chest pain (principal); K44.9 Diaphragmatic hernia without obstruction or gangrene; K21.9 Gastro-esophageal reflux disease without esophagitis; J45.909 Unspecified asthma, uncomplicated; D72.829 Elevated white blood cell count, unspecified; N39.0 Urinary tract infection, site not specified; E78.5 Hyperlipidemia, unspecified; R73.9 Hyperglycemia, unspecified; R00.1 Bradycardia, unspecified; G89.4 Chronic pain syndrome; M19.90 Unspecified osteoarthritis, unspecified site; E66.3 Overweight; Z68.32 Body mass index [BMI] 32.0-32.9, adult; Z79.891 Long term (current) use of opiate analgesic; Z79.899 Other long term (current) drug therapy; Z88.0 Allergy status to penicillin; Z88.6 Allergy status to analgesic agent; Z91.030 Bee allergy status; Z91.041 Radiographic dye allergy status; Z88.5 Allergy status to narcotic agent; Z91.048 Other nonmedicinal substance allergy status; Z90.710 Acquired absence of both cervix and uterus; Z90.49 Acquired absence of other specified parts of digestive tract; Z87.01 Personal history of pneumonia (recurrent); Z96.652 Presence of left artificial knee joint; Z87.891 Personal history of nicotine dependence
CPT/HCPCS: 93005 ×2; 96361; 96374; 99285; 36415; 93306; 93351; 85379; 80061; 80053; 83735; 84484 ×2; 85025; 85610; 85730; 81001; 87086; 71046; G0378 ×2; J1885

== ENCOUNTER → 2019-04-13 | Outpatient (CLI) | payer BC ==
[2019-04-13 10:13] LABS: HCT 43.1 % (34.0-46.0); HGB 14.5 gm/dL (11.4-16.0); MCH 32.8 pg (25.0-35.0); MCHC 33.6 g/dL (31.0-37.0); MCV 97.7 fL (80.0-100.0); Mean Platelet Volume 6.6; Platelet Count 249 k/uL (150-450); RBC 4.41 m/uL (3.80-5.40); RDW 11.9 % (11.5-15.5); WBC 5.9 k/uL (3.8-10.6)
[2019-04-13 10:14] LABS: Prothrombin Time 10.8 sec (9.0-12.0)
[2019-04-13 18:03] LABS: African American GFR (CKD) 82.3 (60.0-200.0); Albumin 4.6 g/dL (3.80-4.90); Albumin/Globulin Ratio 2.19 (1.60-3.17); Anion Gap 7.9 mmol/L (4.00-12.00); BUN/Creat Ratio 15.56 Ratio (12.00-20.00); Calcium 9.6 mg/dL (8.7-10.3); Carbon Dioxide 29.1 mmol/L (21.6-31.8); Globulin 2.1 g/dL (1.6-3.3); Potassium 4.6 mmol/L (3.5-5.5); Total Bilirubin 0.5 mg/dL (0.3-1.2); Total Protein 6.7 g/dL (6.2-8.2)
== END | disposition home or self-care (01) ==
LOC: LABWHC1 09:27
PROVIDERS: ATTEND Surgery Plastic and Reconstructive Surgery
DX: K31.84 Gastroparesis (principal)
CPT/HCPCS: 36415; 80053; 85027; 85610

== ENCOUNTER 2019-05-04 09:43 | Day surgery (SDC) | payer BC ==
[2019-05-02 14:04] VITALS: BMI 31.9
--- NOTE | 2019-05-04 08:00 | P.GSHP ---
History of Present Illness H&P Date: 05/04/19 CHIEF COMPLAINT: GERD HISTORY OF PRESENT ILLNESS: The patient is a 59-year-old female who presents reports gastroesophageal reflux disease. Upper endoscopy was offered for further evaluation and management. PAST MEDICAL HISTORY: Please see list. PAST SURGICAL HISTORY: Please see list. MEDICATIONS: Please see list. ALLERGIES: Please see list. SOCIAL HISTORY: No illicit drug use FAMILY HISTORY: No reports of Crohn disease or ulcerative colitis. REVIEW OF ORGAN SYSTEMS: CONSTITUTIONAL: No reports of fevers or chills. GI: Denies any blood in stools or constipation. PHYSICAL EXAM: VITAL SIGNS: Stable GENERAL: Well-developed and pleasant in no acute distress. HEENT: No scleral icterus. Extraocular movements grossly intact. Moist buccal mucosa. NECK: Supple without lymphadenopathy. CHEST: Unlabored respirations. Equal bilateral excursions. CARDIOVASCULAR: Regular rate and rhythm. Distal 2+ pulses. ABDOMEN: Soft, nondistended. MUSCULOSKELETAL: No clubbing, cyanosis, or edema. ASSESSMENT: 1. Gastroesophageal reflux disease PLAN: 1. Recommend proceeding with an upper endoscopy Past Medical History Past Medical History: Asthma, GERD/Reflux Additional Past Medical History / Comment(s): steroids Mar 2019 History of Any Multi-Drug Resistant Organisms: None Reported Past Surgical History: Bladder Surgery, Cholecystectomy, Hysterectomy, Joint Replacement, Orthopedic Surgery, Tonsillectomy Additional Past Surgical History / Comment(s): lt knee replacement,lt heel spur remove, trigger lft thumb,arthroscopies alvarez knees,abdominal adhesions removed Past Anesthesia/Blood Transfusion Reactions: Motion Sickness, Postoperative Nausea & Vomiting (PONV) Additional Past Anesthesia/Blood Transfusion Reaction / Comment(s): vertigo Smoking Status: Former smoker - Past Family History Mother Family Medical History: Cancer Additional Family Medical History / Comment(s): lung Medications and Allergies Home Medications Medication Instructions Recorded Confirmed Type Calcium Carbonate [Tums] 1,000 mg PO TID PRN 03/16/19 05/02/19 History traMADol HCL 50 mg PO DAILY PRN 03/16/19 05/02/19 History Famotidine [Pepcid] 20 mg PO HS 05/02/19 05/02/19 History Pantoprazole [Protonix] 40 mg PO QAM 05/02/19 05/02/19 History Allergies Allergy/AdvReac Type Severity Reaction Status Date / Time acetaminophen [From Tylenol] Allergy Nausea & Verified 05/02/19 13:57 Vomiting amoxicillin [Amoxicillin] Allergy Rash/Hives Verified 05/02/19 13:57 bee pollen Allergy Anaphylaxis Verified 05/02/19 13:57 hydromorphone HCl Allergy "I don't Verified 05/02/19 13:57 [From Dilaudid] feel like I can breathe right,drops b/p" Iodinated Contrast Media Allergy Anaphylaxis Verified 05/02/19 13:57 [Iodinated Contrast- Oral and IV Dye] plastic Allergy Rash/Hives Uncoded 05/02/19 13:57
[~2019-05-04 09:43] MED LIST: LACTATED RINGERS 1,000 ML IV SCH
[2019-05-04 10:21] VITALS: TEMP 98
[2019-05-04] MEDS ORDERED: PROPOFOL 10 MG/ML 20 ML VIAL IV ONE (10:54)
[2019-05-04] MEDS ORDERED: LIDOCAINE 1% INJ 10MG/ML (20 ML MDV) ONE (10:54)
[2019-05-04] MEDS ORDERED: LACTATED RINGERS 1,000 ML IV ONE (11:05)
--- NOTE | 2019-05-04 11:07 | P.PCN ---
Date of Procedure: 05/04/19 Description of Procedure: PREOPERATIVE DIAGNOSIS: Gastroesophageal reflux disease. Atypical chest pain POSTOPERATIVE DIAGNOSIS: Gastroesophageal reflux disease. Atypical chest pain Gastric polyps OPERATION: Esophagogastroduodenoscopy with hot snare polypectomy gastric cardia for large gastric polyp Esophagogastroduodenoscopy with biopsies along antrum. SURGEON: Breana Santos MD ANESTHESIA: MAC. INDICATIONS: The patient is a 59-year-old female who presents with a history of reflux disease. Benefits and risks of the procedure were described. Informed consent was obtained. DESCRIPTION: The patient was brought into the endoscopy suite and laid in the left lateral decubitus position. An Olympus gastroscope was passed along the posterior oropharynx down to the distal esophagus where the squamocolumnar junction was encountered at 37 cm from the incisors. The stomach was entered and no bile reflux was found. Additional findings are listed below. Biopsies with cold forceps were obtained of the antrum. A large over 2.5 cm gastric polyp of the gastric cardia was identified and hot snared. The first through third portion of the duodenum was examined and unremarkable. Retroflexion of the scope confirmed Hill grade 3 lower esophageal valve. The squamocolumnar junction demonstrated LA grade B erosive esophagitis. The stomach was desufflated. The patient tolerated the procedure well. FINDINGS: Squamocolumnar junction 37 cm from the incisors. Diaphragmatic hiatus at 37 cm. Hill grade 3 lower esophageal valve. LA grade B erosive esophagitis. No active duodenitis. Chronic gastritis A large over 2.5 cm gastric polyp of the gastric cardia was identified and hot snared. RECOMMENDATIONS: Upper endoscopy as needed. Plan - Discharge Summary Discharge Rx Participant: No New Discharge Prescriptions: No Action Calcium Carbonate [Tums] 1,000 mg PO TID PRN PRN Reason: Heartburn traMADol HCL 50 mg PO DAILY PRN PRN Reason: Pain Pantoprazole [Protonix] 40 mg PO QAM Famotidine [Pepcid] 20 mg PO HS Discharge Medication List Calcium Carbonate [Tums] 1,000 mg PO TID PRN 03/16/19 [History] traMADol HCL 50 mg PO DAILY PRN 03/16/19 [History] Famotidine [Pepcid] 20 mg PO HS 05/02/19 [History] Pantoprazole [Protonix] 40 mg PO QAM 05/02/19 [History] Follow up Appointment(s)/Referral(s): Breana Santos MD [STAFF PHYSICIAN] - 05/24/19 Patient Instructions/Handouts: Gastric Polyps (DC), Gastroesophageal Reflux Disease (DC) Discharge Disposition: HOME SELF-CARE
[2019-05-04 11:09] VITALS: RESP 16
[2019-05-04 11:28] VITALS: BP 116/57; PULSE 75
== END 2019-05-04 11:38 | disposition home or self-care (01) ==
LOC: ORWHC2ENDO 09:43
PROVIDERS: ATTEND Surgery Plastic and Reconstructive Surgery
DX: K31.7 Polyp of stomach and duodenum (principal); K29.50 Unspecified chronic gastritis without bleeding; J45.909 Unspecified asthma, uncomplicated; K21.9 Gastro-esophageal reflux disease without esophagitis; Z90.49 Acquired absence of other specified parts of digestive tract; Z90.710 Acquired absence of both cervix and uterus; Z96.652 Presence of left artificial knee joint; Z87.891 Personal history of nicotine dependence; Z97.2 Presence of dental prosthetic device (complete) (partial); Z79.899 Other long term (current) drug therapy; Z88.6 Allergy status to analgesic agent; Z91.030 Bee allergy status; Z91.041 Radiographic dye allergy status; Z88.5 Allergy status to narcotic agent; Z88.0 Allergy status to penicillin; Z91.09 Other allergy status, other than to drugs and biological substances
CPT/HCPCS: 88305; 43239; 43251; J2001; J2704

== ENCOUNTER → 2019-06-10 | Outpatient (CLI) | payer BC ==
--- NOTE | 2019-06-10 10:34 | FL ---
EXAMINATION: Cervical and Thoracic Esophagram DATE OF EXAM: 06/10/2019 CLINICAL INDICATION: 59-year-old female GERD, obesity, atypical chest pain. COMPARISON: None Total Fluoroscopy Time: 2 minutes 2 seconds Total images: 40 FINDINGS: The swallowing mechanism is normal. There is mild degenerative disc disease in the lower cervical spi ne continuing to mild impression onto the posterior wall of the cervical esophagus without any obstru ction. On real-time fluoroscopy, mild to moderate hypertrophy of the cricopharyngeus is noted. Unable to halie e image acquisition to demonstrate this on the saved images. The thoracic portion has a normal course and caliber and normal motility. The mucosa is normal and no persistent filling defect is encountered. There is a very tiny sliding hiatal hernia. Valsalva and positional maneuvers were unsuccessful in el iciting gastroesophageal reflux. The patient reports having taken acid reflux medication this morning . IMPRESSION: 1. Mild to moderate hypertrophy of the cricopharyngeus on real-time fluoroscopy. 2. Very tiny sliding hiatal hernia. 3. No mucosal lesion, filling defect, or stricture identified.
== END | disposition home or self-care (01) ==
LOC: RADUSWWP 09:39
PROVIDERS: ATTEND Surgery Plastic and Reconstructive Surgery
DX: K44.9 Diaphragmatic hernia without obstruction or gangrene (principal); J39.2 Other diseases of pharynx; E66.01 Morbid (severe) obesity due to excess calories
CPT/HCPCS: 74220

== ENCOUNTER 2019-12-14 12:47 | Emergency (ER) | payer BC ==
--- NOTE | 2019-12-14 14:02 | ED ---
General Adult HPI - General Chief complaint: Allergic Reaction Stated complaint: allergic reaction/bee sting Time Seen by Provider: 12/14/19 13:51 Source: patient, RN notes reviewed, old records reviewed Mode of arrival: ambulatory Limitations: no limitations - History of Present Illness Initial comments: 59-year-old female with known ALLERGY to bees was stung in the right hand by a sweat bee yesterday afternoon around 2 PM. She presents for evaluation today at 2 PM. She has been taking a small dose of pediatric liquid Benadryl without relief. She had called her primary care physician whose office was closed and recommended presenting to the emergency department for evaluation. Patient does have history of asthma. She denies dyspnea. Denies vomiting. Denies cough. Swelling is localized to the right hand and right wrist. No fever. - Related Data Home Medications Medication Instructions Recorded Confirmed Calcium Carbonate [Tums] 1,000 mg PO TID PRN 03/16/19 05/04/19 traMADol HCL 50 mg PO DAILY PRN 03/16/19 05/04/19 Famotidine [Pepcid] 20 mg PO HS 05/02/19 05/04/19 Pantoprazole [Protonix] 40 mg PO QAM 05/02/19 05/04/19 Previous Rx's Medication Instructions Recorded methylPREDNISolone Dose Pack 4 mg PO DIRECTED #21 package 12/14/19 [Medrol Dose Pack] Allergies Allergy/AdvReac Type Severity Reaction Status Date / Time acetaminophen [From Tylenol] Allergy Nausea & Verified 12/14/19 13:36 Vomiting amoxicillin [Amoxicillin] Allergy Rash/Hives Verified 12/14/19 13:36 bee pollen Allergy Anaphylaxis Verified 12/14/19 13:36 hydromorphone HCl Allergy "I don't Verified 12/14/19 13:36 [From Dilaudid] feel like I can breathe right,drops b/p" Iodinated Contrast Media Allergy Anaphylaxis Verified 12/14/19 13:36 [Iodinated Contrast- Oral and IV Dye] plastic Allergy Rash/Hives Uncoded 12/14/19 13:36 Review of Systems ROS Statement: Those systems with pertinent positive or pertinent negative responses have been documented in the HPI. ROS Other: All systems not noted in ROS Statement are negative. Past Medical History Past Medical History: Asthma, GERD/Reflux Additional Past Medical History / Comment(s): steroids Mar 2019 History of Any Multi-Drug Resistant Organisms: None Reported Past Surgical History: Bladder Surgery, Cholecystectomy, Hysterectomy, Joint Replacement, Orthopedic Surgery, Tonsillectomy Additional Past Surgical History / Comment(s): lt knee replacement,lt heel spur remove, trigger lft thumb,arthroscopies alvarez knees,abdominal adhesions removed Past Anesthesia/Blood Transfusion Reactions: Motion Sickness, Postoperative Nausea & Vomiting (PONV) Additional Past Anesthesia/Blood Transfusion Reaction / Comment(s): vertigo Past Psychological History: No Psychological Hx Reported Smoking Status: Former smoker Past Alcohol Use History: None Reported Past Drug Use History: None Reported - Past Family History Mother Family Medical History: Cancer Additional Family Medical History / Comment(s): lung General Exam Limitations: no limitations General appearance: alert, in no apparent distress Head exam: Present: atraumatic, normocephalic Eye exam: Present: normal appearance, PERRL ENT exam: Present: normal exam Neck exam: Present: normal inspection. Absent: tenderness, meningismus Respiratory exam: Present: normal lung sounds bilaterally. Absent: respiratory distress, wheezes, rhonchi, stridor Cardiovascular Exam: Present: regular rate, normal rhythm GI/Abdominal exam: Present: soft. Absent: distended, tenderness, guarding Extremities exam: Present: other (Right hand: Normal cap refill, no cellulitis, soft tissue swelling on the dorsal surface of the hand and wrist consistent with ALLERGIC reaction.) Course Vital Signs 12/14/19 13:31 Temperature 98.1 F Pulse Rate 70 Respiratory 16 Rate Blood Pressure 134/82 O2 Sat by Pulse 95 Oximetry Medical Decision Making - Medical Decision Making 59-year-old female with local reaction to bee sting. No signs of anaphylaxis. Patient without dose Benadryl appropriate, taking a dull Benadryl every 6-8 hours. She is given Medrol Dosepak and will follow with her primary care physician. Disposition Clinical Impression: Allergic reaction, Allergic reaction to insect sting Disposition: HOME SELF-CARE Condition: Good Instructions (If sedation given, give patient instructions): Insect Bite or Sting (ED) Prescriptions: methylPREDNISolone Dose Pack [Medrol Dose Pack] 4 mg PO DIRECTED #21 package Is patient prescribed a controlled substance at d/c from ED?: No Referrals: Jacinto Hendricks DO [Primary Care Provider] - 1-2 days Time of Disposition: 14:01
[2019-12-16 09:28] VITALS: BP 134/82; PULSE 70; RESP 16; TEMP 98.1
== END 2019-12-14 14:08 | disposition home or self-care (01) ==
LOC: EC 12:47
DX: T63.441A Toxic effect of venom of bees, accidental (unintentional), initial encounter (principal); K21.9 Gastro-esophageal reflux disease without esophagitis; Z79.899 Other long term (current) drug therapy; Z88.6 Allergy status to analgesic agent; Z88.0 Allergy status to penicillin; Z88.5 Allergy status to narcotic agent; Z91.041 Radiographic dye allergy status; Z91.030 Bee allergy status; Z91.09 Other allergy status, other than to drugs and biological substances; Z87.891 Personal history of nicotine dependence; Z96.652 Presence of left artificial knee joint
CPT/HCPCS: 99283

== ENCOUNTER → 2020-06-19 | Outpatient (CLI) | payer BC ==
--- NOTE | 2020-06-20 07:08 | XR ---
EXAMINATION TYPE: XR chest 2V DATE OF EXAM: 06/19/2020 COMPARISON: Chest x-ray March 16, 2019 HISTORY: Cough and chest pressure for 4 days. History of asthma. History of covid 19 positive Decembe r 2019 TECHNIQUE: Frontal and lateral views of the chest are obtained. FINDINGS: Overlying bra strap on current study. There is no suspicious new focal air space opacity, p leural effusion, or pneumothorax seen. The cardiac silhouette size remains within normal limits. T he osseous structures are intact. Cholecystectomy clips noted. IMPRESSION: No acute cardiopulmonary process. No significant change from prior.
== END | disposition home or self-care (01) ==
LOC: RADXRMAIN 15:51
PROVIDERS: ATTEND Family Medicine
DX: R05 Cough (principal)
CPT/HCPCS: 71046

== ENCOUNTER 2020-08-29 07:00 | Day surgery (SDC) | payer BC ==
[2020-08-24 14:24] VITALS: BMI 33.8
[2020-08-29 07:37] VITALS: PULSE 74; TEMP 97.9
[2020-08-29] MEDS ORDERED: LIDOCAINE 1% (10MG/ML) FOR IV START INTRADERMA ONE (07:43)
[2020-08-29] MEDS ORDERED: PROPOFOL 10 MG/ML 20 ML VIAL IV ONE ×2 (08:06)
[2020-08-29] MEDS ORDERED: LIDOCAINE 1% INJ 10MG/ML (20 ML MDV) ONE (08:06)
--- NOTE | 2020-08-29 08:14 | P.GSHP ---
History of Present Illness H&P Date: 08/29/20 CHIEF COMPLAINT: GERD HISTORY OF PRESENT ILLNESS: The patient is a 60-year-old female who presents reports gastroesophageal reflux disease. Upper endoscopy was offered for further evaluation and management. PAST MEDICAL HISTORY: Please see list. PAST SURGICAL HISTORY: Please see list. MEDICATIONS: Please see list. ALLERGIES: Please see list. SOCIAL HISTORY: No illicit drug use FAMILY HISTORY: No reports of Crohn disease or ulcerative colitis. REVIEW OF ORGAN SYSTEMS: CONSTITUTIONAL: No reports of fevers or chills. GI: Denies any blood in stools or constipation. PHYSICAL EXAM: VITAL SIGNS: Stable GENERAL: Well-developed and pleasant in no acute distress. HEENT: No scleral icterus. Extraocular movements grossly intact. Moist buccal mucosa. NECK: Supple without lymphadenopathy. CHEST: Unlabored respirations. Equal bilateral excursions. CARDIOVASCULAR: Regular rate and rhythm. Distal 2+ pulses. ABDOMEN: Soft, nondistended. MUSCULOSKELETAL: No clubbing, cyanosis, or edema. ASSESSMENT: 1. Gastroesophageal reflux disease PLAN: 1. Recommend proceeding with an upper endoscopy Past Medical History Past Medical History: Asthma, GERD/Reflux Additional Past Medical History / Comment(s): cough @[facility] since Mar., says has narrow "opening" & told probably needs stretching, hiatal hernia, had covid Dec., hypoglycemia History of Any Multi-Drug Resistant Organisms: None Reported Past Surgical History: Bladder Surgery, Cholecystectomy, Hysterectomy, Joint Replacement, Orthopedic Surgery, Tonsillectomy Additional Past Surgical History / Comment(s): lt knee replacement,lt heel spur remove, trigger lft thumb,arthroscopies alvarez knees,abdominal adhesions removed, fatty tumor removed from abd. Past Anesthesia/Blood Transfusion Reactions: Motion Sickness, Postoperative Nausea & Vomiting (PONV) Additional Past Anesthesia/Blood Transfusion Reaction / Comment(s): vertigo Smoking Status: Former smoker - Past Family History Mother Family Medical History: Cancer Additional Family Medical History / Comment(s): lung Medications and Allergies Home Medications Medication Instructions Recorded Confirmed Type traMADol HCL 50 mg PO DAILY PRN 03/16/19 08/29/20 History Pantoprazole [Protonix] 40 mg PO QAM 05/02/19 08/29/20 History Ascorbic Acid/Elderberry Fruit 1 each PO DAILY 08/24/20 08/29/20 History [Elderberry-Vit C 50-100 mg Chw] Cholecalciferol [Vitamin D3 (25 25 mcg PO DAILY 08/24/20 08/29/20 History Mcg = 1000 Iu)] Ibuprofen [Motrin] 800 mg PO Q8H PRN 08/24/20 08/29/20 History Vit C/Ascorb Sod/Multivit-Min 500 mg PO DAILY 08/24/20 08/29/20 History [Emergen-C 500 mg Chewable Tab] Vitamin E 400 unit PO DAILY 08/24/20 08/29/20 History Allergies Allergy/AdvReac Type Severity Reaction Status Date / Time amoxicillin [Amoxicillin] Allergy Rash/Hives Verified 08/29/20 07:27 bee pollen Allergy Anaphylaxis Verified 08/29/20 07:27 hydromorphone HCl Allergy "I don't Verified 08/29/20 07:27 [From Dilaudid] feel like I can breathe right,drops b/p" Iodinated Contrast Media Allergy Anaphylaxis Verified 08/29/20 07:27 [Iodinated Contrast- Oral and IV Dye] adhesive tape AdvReac blisters Verified 08/29/20 07:27 skin plastic Allergy Rash/Hives Uncoded 08/29/20 07:27 Surgical - Exam Vital Signs Temp Pulse Resp BP Pulse Ox 97.9 F 74 16 123/79 98 08/29/20 07:34 08/29/20 07:34 08/29/20 07:34 08/29/20 07:34 08/29/20 07:34
--- NOTE | 2020-08-29 08:35 | P.PCN ---
Date of Procedure: 08/29/20 Description of Procedure: PREOPERATIVE DIAGNOSIS: Dysphagia. Gastroesophageal reflux disease Esophageal stricture POSTOPERATIVE DIAGNOSIS: Dysphagia. Gastroesophageal reflux disease Esophageal stricture, upper esophagus Gastric polyp OPERATION: Esophagogastroduodenoscopy with rigid dilator over the guidewire 54 Fr. SURGEON: Breana Santos MD ANESTHESIA: MAC. INDICATIONS: The patient is a 60-year-old female who presents with choking, coughing including dysphagia to liquids and meats. Symptoms are consistent with dysphagia. Benefits and risks of the procedure were described. Informed consent was obtained. DESCRIPTION: The patient was brought into the endoscopy suite and laid in the left lateral decubitus position. After a timeout was confirmed, the procedure was initiated. An Olympus gastroscope was passed and the stomach was entered. Moderate multiple gastric polyps were identified. The scope was advanced to the duodenum which was unremarkable. Retroflexion the scope confirmed a Hill grade 2 lower esophageal valve. Next using an Bulgarian rigid dilator, a guidewire was placed through the pediatric gastroscope. Next the scope was withdrawn. A 54-Iranian rigid Bulgarian dilator was passed carefully along the posterior oropharynx to 45 cm and left in place for 2-3 minutes stretch. The dilator was withdrawn including the guidewire. The scope was reentered along the posterior oropharynx with no findings of full-thickness tear of the upper esophageal sphincter. Next, inflammation of the antrum was identified with cold forceps biopsies obtained. No full-thickness injury was encountered. The GI tract was desufflated. The patient tolerated the procedure well. FINDINGS: Squamocolumnar junction unremarkable at 37 cm. Upper esophageal stricture without ulceration Bulgarian rigid dilator 54-Iranian completed. Diffuse gastric polyps Hill grade 2 lower esophageal valve. LA grade A esophagitis. Diaphragmatic hiatal hernia 2 cm RECOMMENDATIONS: Upper endoscopy as needed Plan - Discharge Summary Discharge Rx Participant: No New Discharge Prescriptions: Continue traMADol HCL 50 mg PO DAILY PRN PRN Reason: Pain Pantoprazole [Protonix] 40 mg PO QAM Cholecalciferol [Vitamin D3 (25 Mcg = 1000 Iu)] 25 mcg PO DAILY Vit C/Ascorb Sod/Multivit-Min [Emergen-C 500 mg Chewable Tab] 500 mg PO DAILY Ascorbic Acid/Elderberry Fruit [Elderberry-Vit C 50-100 mg Chw] 1 each PO DAILY Discontinued Ibuprofen [Motrin] 800 mg PO Q8H PRN PRN Reason: Pain Vitamin E 400 unit PO DAILY Discharge Medication List traMADol HCL 50 mg PO DAILY PRN 03/16/19 [History] Pantoprazole [Protonix] 40 mg PO QAM 05/02/19 [History] Ascorbic Acid/Elderberry Fruit [Elderberry-Vit C 50-100 mg Chw] 1 each PO DAILY 08/24/20 [History] Cholecalciferol [Vitamin D3 (25 Mcg = 1000 Iu)] 25 mcg PO DAILY 08/24/20 [History] Vit C/Ascorb Sod/Multivit-Min [Emergen-C 500 mg Chewable Tab] 500 mg PO DAILY 08/24/20 [History] Follow up Appointment(s)/Referral(s): Breana Santos MD [STAFF PHYSICIAN] - 09/04/20 Patient Instructions/Handouts: Esophageal Dilation (GEN), *Surgery [facility] - (Anesthesia) Endoscopy Discharge Instructions, Gastric Polyps (DC) Discharge Disposition: HOME SELF-CARE
[2020-08-29] MEDS ORDERED: MAG HYDROX/AL HYDROX/SIMETH 30 ML, HYOSCYAMINE ELIXIR 10 ML, LIDOCAINE VISCOUS 2% 10 ML PO ONE ×3 (08:42)
[2020-08-29 08:50] VITALS: BP 105/73; RESP 16
== END 2020-08-29 09:50 | disposition home or self-care (01) ==
LOC: ORWHC2ENDO 07:00
PROVIDERS: ATTEND Surgery Plastic and Reconstructive Surgery
DX: K22.2 Esophageal obstruction (principal); K31.7 Polyp of stomach and duodenum; K21.9 Gastro-esophageal reflux disease without esophagitis; J45.909 Unspecified asthma, uncomplicated; Z86.16 Personal history of COVID-19; E16.2 Hypoglycemia, unspecified; Z90.49 Acquired absence of other specified parts of digestive tract; Z90.710 Acquired absence of both cervix and uterus; Z96.652 Presence of left artificial knee joint; Z98.890 Other specified postprocedural states; Z90.89 Acquired absence of other organs; Z87.891 Personal history of nicotine dependence; Z80.1 Family history of malignant neoplasm of trachea, bronchus and lung; Z79.891 Long term (current) use of opiate analgesic; Z79.899 Other long term (current) drug therapy; Z91.030 Bee allergy status; Z88.5 Allergy status to narcotic agent; Z88.0 Allergy status to penicillin; Z91.09 Other allergy status, other than to drugs and biological substances
CPT/HCPCS: 43248; J2001; J2704; 43249

== ENCOUNTER 2021-01-16 23:48 | Inpatient (IN) | payer BC ==
[2021-01-17] MEDS ORDERED: SODIUM CHLORIDE 0.9% 1,000 ML IV STA ×3 (00:05→01:31)
[2021-01-17] MEDS ORDERED: KETOROLAC 15 MG/ML 1 ML VIAL IVP STA (00:05)
[2021-01-17] MEDS ORDERED: ACETAMINOPHEN TAB 500 MG TAB PO STA (00:05)
[2021-01-17] MEDS ORDERED: ONDANSETRON 4 MG/2 ML VIAL IVP STA (00:07)
--- NOTE | 2021-01-17 00:10 | ED ---
Fever HPI - General Chief Complaint: Fever Stated Complaint: flu like symptoms Time Seen by Provider: 01/16/21 23:52 Source: patient, RN notes reviewed, old records reviewed Mode of arrival: EMS Limitations: no limitations - History of Present Illness Initial Comments: This is a 52-year-old female DF for evaluation patient feeling very weak lightheaded and dizzy. Patient is diffuse generalized body aches. Patient states symptoms are for a day she feels very lightheaded like she could pass out prior to arrival per EMS patient's blood pressure was low during transfer. Patient has had coronavirus about 8 months ago. Patient denies any significant exposures or travel history. No nausea vomiting or diarrhea. No abdominal pain. No cough or congestion. Runny nose sore throat. MD Complaint: fever, weakness -: days(s) Temperature Source: subjective Associated Symptoms: chills, myalgias, nausea Treatments Prior to Arrival: none - Related Data Home Medications Medication Instructions Recorded Confirmed traMADol HCL 50 mg PO DAILY PRN 03/16/19 08/29/20 Pantoprazole [Protonix] 40 mg PO QAM 05/02/19 08/29/20 Ascorbic Acid/Elderberry Fruit 1 each PO DAILY 08/24/20 08/29/20 [Elderberry-Vit C 50-100 mg Chw] Cholecalciferol [Vitamin D3 (25 25 mcg PO DAILY 08/24/20 08/29/20 Mcg = 1000 Iu)] Vit C/Ascorb Sod/Multivit-Min 500 mg PO DAILY 08/24/20 08/29/20 [Emergen-C 500 mg Chewable Tab] Allergies Allergy/AdvReac Type Severity Reaction Status Date / Time amoxicillin [Amoxicillin] Allergy Rash/Hives Verified 01/17/21 00:03 bee pollen Allergy Anaphylaxis Verified 01/17/21 00:03 hydromorphone HCl Allergy "I don't Verified 01/17/21 00:03 [From Dilaudid] feel like I can breathe right,drops b/p" Iodinated Contrast Media Allergy Anaphylaxis Verified 01/17/21 00:03 [Iodinated Contrast- Oral and IV Dye] adhesive tape AdvReac blisters Verified 01/17/21 00:03 skin plastic Allergy Rash/Hives Uncoded 01/17/21 00:03 Review of Systems ROS Statement: Those systems with pertinent positive or pertinent negative responses have been documented in the HPI. ROS Other: All systems not noted in ROS Statement are negative. Past Medical History Past Medical History: Asthma, GERD/Reflux Additional Past Medical History / Comment(s): cough @[facility] since Mar., says has narrow "opening" & told probably needs stretching, hiatal hernia, had covid Dec., hypoglycemia History of Any Multi-Drug Resistant Organisms: None Reported Past Surgical History: Bladder Surgery, Cholecystectomy, Hysterectomy, Joint Replacement, Orthopedic Surgery, Tonsillectomy Additional Past Surgical History / Comment(s): lt knee replacement,lt heel spur remove, trigger lft thumb,arthroscopies alvarez knees,abdominal adhesions removed, fatty tumor removed from abd. Past Anesthesia/Blood Transfusion Reactions: Motion Sickness, Postoperative Nausea & Vomiting (PONV) Additional Past Anesthesia/Blood Transfusion Reaction / Comment(s): vertigo Past Psychological History: No Psychological Hx Reported Smoking Status: Former smoker Past Alcohol Use History: None Reported Past Drug Use History: None Reported - Past Family History Mother Family Medical History: Cancer Additional Family Medical History / Comment(s): lung General Exam Limitations: no limitations General appearance: alert, in no apparent distress Head exam: Present: atraumatic, normocephalic, normal inspection Eye exam: Present: normal appearance, PERRL, EOMI. Absent: scleral icterus, con junctival injection, periorbital swelling ENT exam: Present: normal exam, mucous membranes moist Neck exam: Present: normal inspection. Absent: tenderness, meningismus, lymphadenopathy Respiratory exam: Present: normal lung sounds bilaterally. Absent: respiratory distress, wheezes, rales, rhonchi, stridor Cardiovascular Exam: Present: regular rate, normal rhythm, normal heart sounds. Absent: systolic murmur, diastolic murmur, rubs, gallop, clicks GI/Abdominal exam: Present: soft, normal bowel sounds. Absent: distended, tenderness, guarding, rebound, rigid Extremities exam: Present: normal inspection, full ROM, normal capillary refill. Absent: tenderness, pedal edema, joint swelling, calf tenderness Back exam: Present: normal inspection Neurological exam: Present: alert, oriented X3, CN II-XII intact Psychiatric exam: Present: normal affect, normal mood Skin exam: Present: warm, dry, intact, normal color. Absent: rash Course Vital Signs 01/17/21 01/17/21 00:00 01:27 Temperature 101.3 F H 100.6 F H Pulse Rate 92 98 Respiratory 20 20 Rate Blood Pressure 118/82 109/75 O2 Sat by Pulse 99 97 Oximetry - Reevaluation(s) Reevaluation #1: 01/17/21 00:09 Medical record is reviewed Reevaluation #2: 01/17/21 01:09 Patient does feel improved with symptom therapy Reevaluation #3: 01/17/21 02:56 Patient is having persistent fever with migraine headache history of migraines. Patient refusing medication to treat headache including Compazine and morphine Reevaluation #4: 01/17/21 02:57 Patient informed of results here questions are answered - Consultations Consultation #1: With Dr. Calderon regarding admission for symptom management. He is agreeable Medical Decision Making - Medical Decision Making 52 female DF for evaluation of fever. Fever and body aches and chills. She does and has had coronavirus. Patient is persistent fever here in the ER and still feels bodyaches and pains, patient be admitted rule out bacteremia or other cause of fever and low blood pressure. - Lab Data Result diagrams: 01/17/21 00:24 01/17/21 00:24 Lab Results 01/17/21 01/17/21 01/17/21 Range/Units 00:24 00:24 00:24 WBC 12.6 H (3.8-10.6) k/uL RBC 4.57 (3.80-5.40) m/uL Hgb 15.5 (11.4-16.0) gm/dL Hct 44.7 (34.0-46.0) % MCV 97.7 (80.0-100.0) fL MCH 33.8 (25.0-35.0) pg MCHC 34.6 (31.0-37.0) g/dL RDW 12.4 (11.5-15.5) % Plt Count 198 (150-450) k/uL MPV 7.9 Neutrophils % 90 % Lymphocytes % 4 % Monocytes % 4 % Eosinophils % 1 % Basophils % 0 % Neutrophils # 11.4 H (1.3-7.7) k/uL Lymphocytes # 0.5 L (1.0-4.8) k/uL Monocytes # 0.5 (0-1.0) k/uL Eosinophils # 0.1 (0-0.7) k/uL Basophils # 0.1 (0-0.2) k/uL Sodium 135 L (137-145) mmol/L Potassium 3.9 (3.5-5.1) mmol/L Chloride 101 (98-107) mmol/L Carbon Dioxide 24 (22-30) mmol/L Anion Gap 10 mmol/L BUN 12 (7-17) mg/dL Creatinine 0.70 (0.52-1.04) mg/dL Est GFR (CKD-EPI)AfAm >90 (>60 ml/min/1.73 sqM) Est GFR (CKD-EPI)NonAf >90 (>60 ml/min/1.73 sqM) Glucose 127 H (74-99) mg/dL Plasma Lactic Acid Evan 1.3 (0.7-2.0) mmol/L Calcium 9.1 (8.4-10.2) mg/dL Magnesium 1.8 (1.6-2.3) mg/dL Total Bilirubin 0.7 (0.2-1.3) mg/dL AST 32 (14-36) U/L ALT 31 (4-34) U/L Alkaline Phosphatase 97 (38-126) U/L Lactate Dehydrogenase 460 (313-618) U/L C-Reactive Protein 5.6 H (<1.0) mg/dL Total Protein 7.3 (6.3-8.2) g/dL Albumin 4.4 (3.5-5.0) g/dL Urine Color Urine Appearance (Clear) Urine pH (5.0-8.0) Ur Specific Pillager (1.001-1.035) Urine Protein (Negative) Urine Glucose (UA) (Negative) Urine Ketones (Negative) Urine Blood (Negative) Urine Nitrite (Negative) Urine Bilirubin (Negative) Urine Urobilinogen (<2.0) mg/dL Ur Leukocyte Esterase (Negative) Urine RBC (0-5) /hpf Urine WBC (0-5) /hpf Ur Squamous Epith Cells (0-4) /hpf Urine Mucus (None) /hpf Influenza Type A (PCR) (Not Detectd) Influenza Type B (PCR) (Not Detectd) RSV (PCR) (Not Detectd) SARS-CoV-2 (PCR) (Not Detectd) 01/17/21 01/17/21 Range/Units 00:24 02:07 WBC (3.8-10.6) k/uL RBC (3.80-5.40) m/uL Hgb (11.4-16.0) gm/dL Hct (34.0-46.0) % MCV (80.0-100.0) fL MCH (25.0-35.0) pg MCHC (31.0-37.0) g/dL RDW (11.5-15.5) % Plt Count (150-450) k/uL MPV Neutrophils % % Lymphocytes % % Monocytes % % Eosinophils % % Basophils % % Neutrophils # (1.3-7.7) k/uL Lymphocytes # (1.0-4.8) k/uL Monocytes # (0-1.0) k/uL Eosinophils # (0-0.7) k/uL Basophils # (0-0.2) k/uL Sodium (137-145) mmol/L Potassium (3.5-5.1) mmol/L Chloride (98-107) mmol/L Carbon Dioxide (22-30) mmol/L Anion Gap mmol/L BUN (7-17) mg/dL Creatinine (0.52-1.04) mg/dL Est GFR (CKD-EPI)AfAm (>60 ml/min/1.73 sqM) Est GFR (CKD-EPI)NonAf (>60 ml/min/1.73 sqM) Glucose (74-99) mg/dL Plasma Lactic Acid Evan (0.7-2.0) mmol/L Calcium (8.4-10.2) mg/dL Magnesium (1.6-2.3) mg/dL Total Bilirubin (0.2-1.3) mg/dL AST (14-36) U/L ALT (4-34) U/L Alkaline Phosphatase (38-126) U/L Lactate Dehydrogenase (313-618) U/L C-Reactive Protein (<1.0) mg/dL Total Protein (6.3-8.2) g/dL Albumin (3.5-5.0) g/dL Urine Color Yellow Urine Appearance Clear (Clear) Urine pH 6.0 (5.0-8.0) Ur Specific Pillager 1.016 (1.001-1.035) Urine Protein Negative (Negative) Urine Glucose (UA) Negative (Negative) Urine Ketones Negative (Negative) Urine Blood Negative (Negative) Urine Nitrite Negative (Negative) Urine Bilirubin Negative (Negative) Urine Urobilinogen <2.0 (<2.0) mg/dL Ur Leukocyte Esterase Small H (Negative) Urine RBC <1 (0-5) /hpf Urine WBC 1 (0-5) /hpf Ur Squamous Epith Cells <1 (0-4) /hpf Urine Mucus Few H (None) /hpf Influenza Type A (PCR) Not Detected (Not Detectd) Influenza Type B (PCR) Not Detected (Not Detectd) RSV (PCR) Not Detected (Not Detectd) SARS-CoV-2 (PCR) Not Detected (Not Detectd) - EKG Data -: EKG Interpreted by Me (EKG shows sinus tachycardia 101 NC 142 QRS 72 QTC 420) - Radiology Data Radiology results: report reviewed (Chest x-rays negative for acute disease), image reviewed Disposition Clinical Impression: Fever Narrative: ro Bacteremia Disposition: ADMITTED IP TO THIS [facility] Condition: Good Is patient prescribed a controlled substance at d/c from ED?: No Referrals: Jacinto Hendricks DO [Primary Care Provider] - 1-2 days
[2021-01-17 01:00] LABS: Basophils # (A) 0.1 k/uL (0-0.2); Basophils % (A) 0 %; Eosinophils # (A) 0.1 k/uL (0-0.7); Eosinophils % (A) 1 %; HCT 44.7 % (34.0-46.0); HGB 15.5 gm/dL (11.4-16.0); Lymphocytes # (A) 0.5 k/uL (1.0-4.8); Lymphocytes % (A) 4 %; MCH 33.8 pg (25.0-35.0); MCHC 34.6 g/dL (31.0-37.0); MCV 97.7 fL (80.0-100.0); Mean Platelet Volume 7.9; Monocytes # (A) 0.5 k/uL (0-1.0); Monocytes % (A) 4 %; Neutrophils # (A) 11.4 k/uL (1.3-7.7); Neutrophils % (A) 90 %; Platelet Count 198 k/uL (150-450); RBC 4.57 m/uL (3.80-5.40); RDW 12.4 % (11.5-15.5); WBC 12.6 k/uL (3.8-10.6)
[2021-01-17 01:10] LABS: ALT 31 U/L (4-34); AST 32 U/L (14-36); African American GFR (CKD) >90 (>60 ml/min/1.73 sqM); Albumin 4.4 g/dL (3.5-5.0); Alkaline Phosphatase 97 U/L (38-126); Anion Gap 10 mmol/L; Blood Urea Nitrogen 12 mg/dL (7-17); C Reactive Protein 5.6 mg/dL (<1.0); Calcium 9.1 mg/dL (8.4-10.2); Carbon Dioxide 24 mmol/L (22-30); Chloride 101 mmol/L (98-107); Glucose 127 mg/dL (74-99); LDH 460 U/L (313-618); Magnesium 1.8 mg/dL (1.6-2.3); Non-African American GFR(CKD) >90 (>60 ml/min/1.73 sqM); Potassium 3.9 mmol/L (3.5-5.1); Sodium 135 mmol/L (137-145); Total Bilirubin 0.7 mg/dL (0.2-1.3); Total Protein 7.3 g/dL (6.3-8.2)
--- NOTE | 2021-01-17 01:20 | XR ---
EXAMINATION TYPE: XR chest 1V portable DATE OF EXAM: 01/17/2021 COMPARISON: 11/16/2020 HISTORY: Pneumonia TECHNIQUE: Single view FINDINGS: Heart and mediastinum are normal. Lungs are clear. Diaphragm is normal. Bony thorax appears normal. IMPRESSION: Normal chest. No change.
[2021-01-17] MEDS ORDERED: PROCHLORPERAZINE INJ 10 MG/2 ML VIAL IVP STA (01:31)
[2021-01-17] MEDS ORDERED: diphenhydrAMINE 50 MG/ML 1 ML VIAL IVP STA (01:31)
[2021-01-17 02:19] LABS: Appearance,Urine Clear (Clear); Bilirubin,Urine Negative (Negative); Blood,Urine Negative (Negative); Color,Urine Yellow; Glucose,Urine (UA) Negative (Negative); Ketones,Urine Negative (Negative); Leukocyte Esterase,Urine Small (Negative); Mucus,Urine Few /hpf; Nitrite,Urine Negative (Negative); Protein,Urine Negative (Negative); RBC,Urine <1 /hpf (0-5); Specific Gravity,Urine 1.016 (1.001-1.035); Squamous Epithelial Cell,Urine <1 /hpf (0-4); Urobilinogen,Urine <2.0 mg/dL (<2.0); WBC,Urine 1 /hpf (0-5)
[2021-01-17] MEDS ORDERED: ONDANSETRON 4 MG/2 ML VIAL IVP PRN (02:58)
[2021-01-17] MEDS ORDERED: SODIUM CHLORIDE 0.9% 500 ML 500 ML IV SCH (03:00)
[2021-01-17] MEDS: SODIUM CHLORIDE 0.9% 1,000 ML IV SCH ×3 (03:18→22:36)
[2021-01-17] MEDS: ACETAMINOPHEN TAB 325 MG TAB PO PRN ×2 (04:18→10:00)
[2021-01-17] MEDS: IBUPROFEN 600 MG TAB PO SCH ×3 (06:52→21:11)
[2021-01-17] MEDS ORDERED: traMADol 50 MG TAB PO PRN (10:03)
--- NOTE | 2021-01-17 12:47 | P.HPIM ---
History of Present Illness H&P Date: 01/17/21 HISTORY OF PRESENT ILLNESS This is a 60 year old female patient of Dr. Loza with past medical history of mild intermittent asthma, gastroesophageal reflux disease and hiatal hernia, hyperlipidemia, hyperglycemia, she had Covid 19 infection in May 2020. She was treated at home symptomatic relief without aggressive treatment be necessary. Patient states that she started having shaking this at nighttime for the past 2 nights. She also has diarrhea and nausea. She has decreased appetite. She denies any shortness of breath. She denies any upper respiratory symptoms. She denies having any blood in her stools. She complains of feeling weak and tired. She denies any recent travel or sick contacts. No animal exposures. She states she was recently finished steroid for rash on her right forearm. She denies any recent antibiotic exposure. Patient came into the [facility] emergency center for evaluation. She was found to be febrile at 101.3, heart rate 92, blood pressure 118/82, pulse ox 99% on room air. WBC 12.6, hemoglobin 15.5, platelet count 198. Sodium 135 otherwise electrolytes and renal function normal. Blood sugar 147. INR 1.3 liver function tests were normal. LDH 460. C-reactive protein 5.6. Urinalysis clear with nitrate negative leukoesterase small. EKG was sinus tachycardia at 101 bpm. Chest x-ray negative for acute finding. Patient was started on ceftriaxone which will be discontinued, IV fluids at 130s cc per hour, C. diff, CMV, Sandra-Clarke panel, Legionella and stool culture all ordered. REVIEW OF SYSTEMS Constitutional: Reports fever, Reports chills, Reports night sweats. No weight change. No weakness, fatigue or lethargy. No daytime sleepiness. EENT: No headache. No blurred vision or double vision, no loss of vision. No loss of Hearing, no ringing in the ears, no dizziness. No nasal drainage or congestion. No epistaxis. No sore throat. Lungs: No shortness of breath, cough, no sputum production. No wheezing. Cardiovascular: No chest pain, no lower extremity edema. No palpitations. No paroxysmal nocturnal dyspnea. No orthopnea. No lightheadedness or dizziness. No syncopal episodes. Abdominal: No abdominal pain. Reports nausea, vomiting. Reports diarrhea. No constipation. No bloody or tarry stools.. No loss of appetite. Genitourinary: No dysuria, increased frequency, urgency. No urinary retention. Musculoskeletal: Reports generalized myalgias. No muscle weakness, no gait dysfunction, no frequent falls. No back pain. No neck pain. Integumentary: No wounds, no lesions. No rash or pruritus. No unusual bruising. No change in hair or nails. Neurologic: No aphasia. No facial droop. No change in mentation. No head injury. No headache. No paralysis. No paresthesia. Psychiatric: No depression. No anxiety. No mood swings. Endocrine: No abnormal blood sugars. No weight change. No excessive sweating or thirst. No cold intolerance. MEDICAL HISTORY Mild intermittent asthma Gastroesophageal reflux disease Vitamin D deficiency SURGICAL HISTORY Cholecystectomy Appendectomy Left total knee arthroplasty Left heel spur surgery Lysis of adhesions secondary to bowel obstruction SOCIAL HISTORY Patient is a lifelong nonsmoker, no alcohol use, marijuana use or illicit drug use. Patient is and lives at home with her . FAMILY HISTORY Mother at age 77 from lung cancer. Father at age 89 from old age. Patient has 2 brothers and 2 sisters with no major medical problems. She has 3 children with no major medical problems. PHYSICAL EXAMINATION Gen: This is a 60-year-old obese female. Patient is resting in bed and appears to be comfortable and in no acute distress. HEENT: Head is atraumatic, normocephalic. Pupils equal, round. Sclerae is anicteric. NECK: Supple. No JVD. No lymphadenopathy. No thyromegaly. LUNGS: Clear to auscultation. No wheezes or rhonchi. No intercostal retractions. HEART: Regular rate and rhythm. No murmur. ABDOMEN: Soft. Bowel sounds are present. No masses. Mild generalized tenderness. EXTREMITIES: No pedal edema. No calf tenderness. NEUROLOGICAL: Patient is awake, alert and oriented x3. Cranial nerves 2 through 12 are grossly intact. ASSESSMENT AND PLAN 1. Sepsis with Nausea, diarrhea most likely secondary to viral gastroenteritis. Stool to be obtained for C. difficile toxin and stool culture, testing for CMV, Sandra-Calrke, Legionella, continue IV fluids 0.9 normal saline at 130s cc per hour, Zofran as needed for nausea. 2. Mild intermittent asthma. Patient is not currently on inhalers. 3. Gastroesophageal reflux disease. Continue Protonix 40 mg daily. 4. Vitamin D deficiency. We'll supplement for now. 5. History of Covid 19 infection in May 2020. 6. DVT prophylaxis. Heparin subcu. Patient will be admitted to the hospital for a minimum of 2 night stay. DISCHARGE PLAN Home. Impression and plan of care have been directed as dictated by the signing physician. Megan Jacobo nurse practitioner acting as scribe for signing physician. Past Medical History Past Medical History: Asthma, GERD/Reflux, Osteoarthritis (OA) Additional Past Medical History / Comment(s): cough @[facility] since Mar., says has narrow "opening" & told probably needs stretching, hiatal hernia, had covid Dec., hypoglycemia History of Any Multi-Drug Resistant Organisms: None Reported Past Surgical History: Bladder Surgery, Cholecystectomy, Hysterectomy, Joint Replacement, Orthopedic Surgery, Tonsillectomy Additional Past Surgical History / Comment(s): lt knee replacement,lt heel spur remove, trigger lft thumb,arthroscopies alvarez knees,abdominal adhesions removed, fatty tumor removed from abd. Past Anesthesia/Blood Transfusion Reactions: Motion Sickness, Postoperative Nausea & Vomiting (PONV) Additional Past Anesthesia/Blood Transfusion Reaction / Comment(s): vertigo Past Psychological History: No Psychological Hx Reported Smoking Status: Former smoker Past Alcohol Use History: None Reported Additional Past Alcohol Use History / Comment(s): smoked for 1 yr approx at age 27 Past Drug Use History: None Reported - Past Family History Mother Family Medical History: Cancer Additional Family Medical History / Comment(s): lung Medications and Allergies Home Medications Medication Instructions Recorded Confirmed Type traMADol HCL 50 mg PO TID PRN 03/16/19 01/17/21 History Pantoprazole [Protonix] 40 mg PO QAM 05/02/19 01/17/21 History Ascorbic Acid/Elderberry Fruit 1 tab PO DAILY 08/24/20 01/17/21 History [Elderberry-Vit C 50-100 mg Chw] Cholecalciferol [Vitamin D3 (25 75 mcg PO DAILY 08/24/20 01/17/21 History Mcg = 1000 Iu)] Ascorbic Acid [Vitamin C] 1,000 mg PO DAILY 01/17/21 01/17/21 History Ibuprofen [Motrin] 800 mg PO TID PRN 01/17/21 01/17/21 History Vitamin E [Vitamin E (1000 Iu = 1,000 unit PO DAILY 01/17/21 01/17/21 History 450 MG)] Allergies Allergy/AdvReac Type Severity Reaction Status Date / Time adhesive tape Allergy blisters Verified 01/17/21 06:59 skin amoxicillin [Amoxicillin] Allergy Rash/Hives Verified 01/17/21 06:59 bee pollen Allergy Anaphylaxis Verified 01/17/21 06:59 hydromorphone HCl Allergy "I don't Verified 01/17/21 06:59 [From Dilaudid] feel like I can breathe right,drops b/p" Iodinated Contrast Media Allergy Anaphylaxis Verified 01/17/21 06:59 [Iodinated Contrast- Oral and IV Dye] plastic Allergy Rash/Hives Uncoded 01/17/21 00:03 Physical Exam Vitals: Vital Signs Temp Pulse Pulse Resp BP BP Pulse Ox 01/17/21 07:55 99.6 F 100 16 103/67 93 L 01/17/21 07:45 16 01/17/21 04:05 98.2 F 89 18 111/69 95 01/17/21 01:27 100.6 F H 98 20 109/75 97 01/17/21 00:00 101.3 F H 92 20 118/82 99 Intake and Output 01/16/21 01/17/21 01/17/21 22:59 06:59 14:59 Other: # Voids 1 Weight 79.832 kg Results CBC & Chem 7: 01/17/21 00:24 01/17/21 00:24 Labs: Abnormal Lab Results - Last 24 Hours (Table) 01/17/21 01/17/21 01/17/21 Range/Units 00:24 00:24 02:07 WBC 12.6 H (3.8-10.6) k/uL Neutrophils # 11.4 H (1.3-7.7) k/uL Lymphocytes # 0.5 L (1.0-4.8) k/uL Sodium 135 L (137-145) mmol/L Glucose 127 H (74-99) mg/dL C-Reactive Protein 5.6 H (<1.0) mg/dL Ur Leukocyte Esterase Small H (Negative) Urine Mucus Few H (None) /hpf Thrombosis Risk Factor Assmnt - Choose All That Apply Each Factor Represents 1 point: Age 41-60 years Thrombosis Risk Factor Assessment Total Risk Factor Score: 1 Thrombosis Risk Factor Assessment Level: Low Risk
[2021-01-17] MEDS: HYDROcodone/APAP 5-325MG 1 EACH TAB PO PRN ×2 (15:14→22:32)
[2021-01-17 17:03] LABS: EBV-EA (IgG) <0.2 AI; EBV-EBNA(IgG) >8.0 AI; EBV-VCA (IgG) 6.7 AI; EBV-VCA (IgM) <0.2 AI
[2021-01-17] MEDS ORDERED: CHOLESTYRAMINE (WITH SUGAR) 4 GM PACKET PO SCH (18:00)
[2021-01-17] MEDS: HEPARIN SODIUM,PORCINE/PF 5,000 UNIT/0.5 ML SYRINGE SQ SCH (21:13)
[2021-01-18] MEDS: IBUPROFEN 600 MG TAB PO SCH ×3 (07:06→21:46)
[2021-01-18] MEDS: HYDROcodone/APAP 5-325MG 1 EACH TAB PO PRN ×2 (07:06→16:23)
[2021-01-18] MEDS: PANTOPRAZOLE 40 MG TABLET PO SCH (07:06)
[2021-01-18] MEDS: HEPARIN SODIUM,PORCINE/PF 5,000 UNIT/0.5 ML SYRINGE SQ SCH ×2 (07:06→19:50)
[2021-01-18] MEDS: SODIUM CHLORIDE 0.9% 1,000 ML IV SCH ×3 (07:07→15:04)
[2021-01-18] MEDS ORDERED: LOPERAMIDE 2 MG CAP PO PRN (09:08)
[2021-01-18] MEDS ORDERED: LOPERAMIDE 2 MG CAP PO STA (09:08)
[2021-01-18] MEDS ORDERED: IOPAMIDOL CONTRAST (ORAL USE) VIAL PO PRN (09:09)
[2021-01-18 09:18] LABS: Basophils % (A) 0 %; Eosinophils # (A) 0.1 k/uL (0-0.7); Eosinophils % (A) 1 %; HCT 34.1 % (34.0-46.0); Lymphocytes # (A) 0.8 k/uL (1.0-4.8); Lymphocytes % (A) 10 %; MCH 34.6 pg (25.0-35.0); MCHC 34.7 g/dL (31.0-37.0); MCV 99.7 fL (80.0-100.0); Mean Platelet Volume 7.6; Monocytes # (A) 0.3 k/uL (0-1.0); Monocytes % (A) 4 %; Neutrophils % (A) 83 %; Platelet Count 152 k/uL (150-450); RBC 3.42 m/uL (3.80-5.40); RDW 12.7 % (11.5-15.5); WBC 8.4 k/uL (3.8-10.6)
[2021-01-18 09:25] LABS: ALT 31 U/L (4-34); AST 38 U/L (14-36); African American GFR (CKD) >90 (>60 ml/min/1.73 sqM); Albumin 2.6 g/dL (3.5-5.0); Alkaline Phosphatase 78 U/L (38-126); Anion Gap 4 mmol/L; Blood Urea Nitrogen 6 mg/dL (7-17); Calcium 8.1 mg/dL (8.4-10.2); Carbon Dioxide 23 mmol/L (22-30); Chloride 110 mmol/L (98-107); Globulin 2.5 g/dL; Glucose 150 mg/dL (74-99); Non-African American GFR(CKD) >90 (>60 ml/min/1.73 sqM); Potassium 3.6 mmol/L (3.5-5.1); Sodium 137 mmol/L (137-145); Total Bilirubin 0.4 mg/dL (0.2-1.3); Total Protein 5.1 g/dL (6.3-8.2)
[2021-01-18 09:48] LABS: HGB 11.8 gm/dL (11.4-16.0)
[2021-01-18] MEDS: BARIUM SULFATE 450 ML ORAL.SUSP BOTTLE PO PRN ×2 (12:04→15:05)
--- NOTE | 2021-01-18 13:50 | P.PN ---
Subjective Progress Note Date: 01/18/21 HISTORY OF PRESENT ILLNESS This is a 60 year old female patient of Dr. Loza with past medical history of mild intermittent asthma, gastroesophageal reflux disease and hiatal hernia, hyperlipidemia, hyperglycemia, she had Covid 19 infection in May 2020. She was treated at home symptomatic relief without aggressive treatment be necessary. Patient states that she started having shaking this at nighttime for the past 2 nights. She also has diarrhea and nausea. She has decreased appetite. She denies any shortness of breath. She denies any upper respiratory symptoms. She denies having any blood in her stools. She complains of feeling weak and tired. She denies any recent travel or sick contacts. No animal exposures. She states she was recently finished steroid for rash on her right forearm. She denies any recent antibiotic exposure. Patient came into the [facility] emergency center for evaluation. She was found to be febrile at 101.3, heart rate 92, blood pressure 118/82, pulse ox 99% on room air. WBC 12.6, hemoglobin 15.5, platelet count 198. Sodium 135 otherwise electrolytes and renal function normal. Blood sugar 147. INR 1.3 liver function tests were normal. LDH 460. C-reactive protein 5.6. Urinalysis clear with nitrate negative leukoesterase small. EKG was sinus tachycardia at 101 bpm. Chest x-ray negative for acute finding. Patient was started on ceftriaxone which will be discontinued, IV fluids at 130s cc per bebe r, C. diff, CMV, Sandra-Clarke panel, Legionella and stool culture all ordered. 01/18: Patient continues to have diarrhea up to every 1 hour. She is complaining of right-sided abdominal pain. Imodium added. Consult added for Dr. Brooke and CAT scan of the pelvis ordered. C. difficile toxin was negative. Sandra-Clarke virus IgG positive but IgM is negative. Blood culture is showing no growth at 24 hours and blood cultures in process. Patient has been afebrile, heart rate 66, blood pressure 98/62, pulse ox 98% on room air. REVIEW OF SYSTEMS Constitutional: Reports fever, Reports chills, Reports night sweats. No weight change. No weakness, fatigue or lethargy. No daytime sleepiness. EENT: No headache. No blurred vision or double vision, no loss of vision. No loss of Hearing, no ringing in the ears, no dizziness. No nasal drainage or congestion. No epistaxis. No sore throat. Lungs: No shortness of breath, cough, no sputum production. No wheezing. Cardiovascular: No chest pain, no lower extremity edema. No palpitations. No paroxysmal nocturnal dyspnea. No orthopnea. No lightheadedness or dizziness. No syncopal episodes. Abdominal: Reports right-sided abdominal pain. Reports nausea, vomiting. Reports diarrhea. No constipation. No bloody or tarry stools reports loss of appetite. Genitourinary: No dysuria, increased frequency, urgency. No urinary retention. Musculoskeletal: Reports generalized myalgias. No muscle weakness, no gait dysfunction, no frequent falls. No back pain. No neck pain. Integumentary: No wounds, no lesions. No rash or pruritus. No unusual bruising. No change in hair or nails. Neurologic: No aphasia. No facial droop. No change in mentation. No head injury. No headache. No paralysis. No paresthesia. Psychiatric: No depression. No anxiety. No mood swings. Endocrine: No abnormal blood sugars. No weight change. No excessive sweating or thirst. No cold intolerance. PHYSICAL EXAMINATION Gen: This is a 60-year-old obese female. Patient is resting in bed and appears to be comfortable and in no acute distress. HEENT: Head is atraumatic, normocephalic. Pupils equal, round. Sclerae is anicteric. NECK: Supple. No JVD. No lymphadenopathy. No thyromegaly. LUNGS: Clear to auscultation. No wheezes or rhonchi. No intercostal retractions. HEART: Regular rate and rhythm. No murmur. ABDOMEN: Soft. Bowel sounds are present. No masses. Right-sided abdominal tend erness. EXTREMITIES: No pedal edema. No calf tenderness. NEUROLOGICAL: Patient is awake, alert and oriented x3. Cranial nerves 2 through 12 are grossly intact. ASSESSMENT AND PLAN 1. Sepsis with Nausea, diarrhea most likely secondary to viral gastroenteritis. Stool negative for C. difficile toxin, stool culture in process, testing for CMV, Legionella, continue IV fluids 0.9 normal saline decreased to 75 cc per hour, Zofran as needed for nausea. Consult with Dr. Brooke. CAT scan of the abdomen and pelvis ordered. Imodium added. 2. Mild intermittent asthma. Patient is not currently on inhalers. 3. Gastroesophageal reflux disease. Continue Protonix 40 mg daily. 4. Vitamin D deficiency. We'll supplement for now. 5. History of Covid 19 infection in May 2020. 6. DVT prophylaxis. Heparin subcu. DISCHARGE PLAN Home. Impression and plan of care have been directed as dictated by the signing physician. Megan Jacobo nurse practitioner acting as scribe for signing physician. Objective - Vital Signs Vital signs: Vital Signs Temp 97.8 F 01/18/21 08:00 Pulse 66 01/18/21 08:00 Resp 18 01/18/21 08:00 BP 98/62 01/18/21 08:00 Pulse Ox 98 01/18/21 08:00 Intake & Output 01/17/21 01/18/21 01/18/21 18:59 06:59 18:59 Other: # Voids 3 1 # Bowel Movements 3 - Labs CBC & Chem 7: 01/18/21 08:39 01/18/21 08:39 Labs: Abnormal Lab Results - Last 24 Hours (Table) 01/17/21 Range/Units 00:24 EBV Capsid Ag IgG Intrp POSITIVE A (NEGATIVE) EBV Nuc Ag IgG Interp POSITIVE A (NEGATIVE) Microbiology - Last 24 Hours (Table) 01/17/21 00:24 Blood Culture - Preliminary Blood No Growth after 24 hours 01/17/21 00:24 Blood Culture - Preliminary Blood No Growth after 24 hours 01/17/21 10:30 Stool Culture - Preliminary Stool
--- NOTE | 2021-01-18 16:56 | CT ---
EXAMINATION TYPE: CT abdomen pelvis wo con DATE OF EXAM: 01/18/2021 COMPARISON: None available. HISTORY: Right abd pain, diarrhea CT DLP: 717.4 mGycm Automated exposure control for dose reduction was used. TECHNIQUE: Helical acquisition of images was performed from the lung bases through the pelvis. FINDINGS: LUNG BASES: No significant abnormality is appreciated. LIVER/GB: No acute abnormality is appreciated. Cholecystectomy. PANCREAS: No significant abnormality is seen. SPLEEN: No significant abnormality is seen. ADRENALS: No significant abnormality is seen. KIDNEYS: No significant abnormality is seen. FREE AIR: No free air is visualized RETROPERITONEAL ADENOPATHY: None visualized REPRODUCTIVE ORGANS: No significant abnormality is seen URINARY BLADDER: No significant abnormality is seen. PELVIC ADENOPATHY: None visualized. OSSEOUS STRUCTURES: No significant abnormality is seen. BOWEL: No significant abnormality is seen. Appendix is not visualized, but no evidence to suggest ac nikolay appendicitis. OTHER: Small pelvic free fluid. IMPRESSION: TRACE PELVIC FLUID, MAY BE PHYSIOLOGIC. OTHERWISE NO ACUTE ABNORMALITY.
--- NOTE | 2021-01-18 23:31 | P.CONS ---
History of Present Illness - Reason for Consult Consult date: 01/18/21 Fever Requesting physician: Jose Calderon - Chief Complaint weakness and diarrhea x few days - History of Present Illness History of present illness : Patient is a 60-year-old female presented to hospital 2 nights ago for evaluation of feeling weak lightheaded and dizzy along with diffuse body aches patient symptom has been going on for only 1 or 2 before presentation the hospital and the patient was complaining of significant diarrhea with multiple loose stools denies having any blood or mucus in the stools patient did have some crampy abdominal pain intensities 6-7 out of 10 no radiation has some nausea but no vomiting patient denies having headache or URI symptoms no chest pain shortness of breath or cough with the symptom the patient has been evaluated by ER physician on arrival to the ER completed a fever of 101.3 F patient did have white count of 12 point 6 repeat electrolytes this morning was normal patient did have normal kidney function liver exams are normal CRP was elevated urine was negative stool for C. difficile negative CMV antibodies are positive as well as EBV rivera PCR was negative patient did have a chest x-ray that was negative ID was consulted today because of the fever Review of system: Positive point has been mentioned in HPI rest of the systems are negative Past medical history : Reviewed, documented below Past surgical history : Reviewed, documented below Social history: Reviewed, documented below Medications: Reviewed, as documented below GENERAL DESCRIPTION: Middle-aged female lying in bed, no distress. No tachypnea or accessory muscle of respiration use. HEENT: Shows Pallor , no scleral icterus. Oral mucous membrane is dry. NECK: Trachea central, no thyromegaly. LUNGS: Unlabored breathing. Clear to auscultation anteriorly. No wheeze or crackle. HEART: S1, S2, regular rate and rhythm. ABDOMEN: Soft, no tenderness , guarding or rigidity EXTREMITIES: No edema of feet. SKIN: No rash, no masses palpable. NEUROLOGICAL: The patient is awake, alert, oriented x3, mood and affect normal. LABS AND RADIOLOGY: Reviewed results see below Assessment :1- Patient presented to hospital with generalized weakness in this patient who did have fever and significant diarrhea abdominal pain nausea with concern for possible gastroenteritis question of possible viral versus bacterial as currently no other obvious focus of infection with initial work-up has been negative so far 2-patient with iodine allergy Plan: 1-we will obtain a CT of abdominal pelvis with oral contrast only to evaluate for intra-abdominal pathology 2-await stool culture stool for C. difficile is negative 3-we will add Questran for symptomatic relief and IV fluids We will follow on clinical condition and cultures to further adjust medication if needed Thank you for this consultation we will follow the patient along with you Past Medical History Past Medical History: Asthma, GERD/Reflux, Osteoarthritis (OA) Additional Past Medical History / Comment(s): cough @[facility] since Mar., says has narrow "opening" & told probably needs stretching, hiatal hernia, had covid Dec ., hypoglycemia History of Any Multi-Drug Resistant Organisms: None Reported Past Surgical History: Bladder Surgery, Cholecystectomy, Hysterectomy, Joint Replacement, Orthopedic Surgery, Tonsillectomy Additional Past Surgical History / Comment(s): lt knee replacement,lt heel spur remove, trigger lft thumb,arthroscopies alvarez knees,abdominal adhesions removed, fatty tumor removed from abd. Past Anesthesia/Blood Transfusion Reactions: Motion Sickness, Postoperative Nausea & Vomiting (PONV) Additional Past Anesthesia/Blood Transfusion Reaction / Comm: vertigo Past Psychological History: No Psychological Hx Reported Smoking Status: Former smoker Past Alcohol Use History: None Reported Additional Past Alcohol Use History / Comment(s): smoked for 1 yr approx at age 27 Past Drug Use History: None Reported - Past Family History Mother Family Medical History: Cancer Additional Family Medical History / Comment(s): lung Medications and Allergies Home Medications Medication Instructions Recorded Confirmed Type traMADol HCL 50 mg PO TID PRN 03/16/19 01/17/21 History Pantoprazole [Protonix] 40 mg PO QAM 05/02/19 01/17/21 History Ascorbic Acid/Elderberry Fruit 1 tab PO DAILY 08/24/20 01/17/21 History [Elderberry-Vit C 50-100 mg w] Cholecalciferol [Vitamin D3 (25 75 mcg PO DAILY 08/24/20 01/17/21 History Mcg = 1000 Iu)] Ascorbic Acid [Vitamin C] 1,000 mg PO DAILY 01/17/21 01/17/21 History Ibuprofen [Motrin] 800 mg PO TID PRN 01/17/21 01/17/21 History Vitamin E [Vitamin E (1000 Iu = 1,000 unit PO DAILY 01/17/21 01/17/21 History 450 MG)] Allergies Allergy/AdvReac Type Severity Reaction Status Date / Time adhesive tape Allergy blisters Verified 01/17/21 06:59 skin amoxicillin [Amoxicillin] Allergy Rash/Hives Verified 01/17/21 06:59 bee pollen Allergy Anaphylaxis Verified 01/17/21 06:59 hydromorphone HCl Allergy "I don't Verified 01/17/21 06:59 [From Dilaudid] feel like I can breathe right,drops b/p" Iodinated Contrast Media Allergy Anaphylaxis Verified 01/17/21 06:59 [Iodinated Contrast- Oral and IV Dye] plastic Allergy Rash/Hives Uncoded 01/17/21 00:03 Physical Exam Vitals: Vital Signs Temp Pulse Resp BP Pulse Ox 01/18/21 20:00 16 01/18/21 19:06 97.8 F 68 16 94/62 98 01/18/21 13:58 97.9 F 68 18 107/69 97 01/18/21 08:00 97.8 F 66 18 98/62 98 01/18/21 01:57 98.1 F 63 16 93/62 97 Intake and Output 01/18/21 01/18/21 01/19/21 14:59 22:59 06:59 Other: # Voids 3 Results CBC & Chem 7: 01/18/21 08:39 01/18/21 08:39 Labs: Abnormal Lab Results - Last 24 Hours (Table) 01/17/21 01/18/21 01/18/21 Range/Units 00:24 08:39 08:39 RBC 3.42 L (3.80-5.40) m/uL Lymphocytes # 0.8 L (1.0-4.8) k/uL Chloride 110 H (98-107) mmol/L BUN 6 L (7-17) mg/dL Glucose 150 H (74-99) mg/dL Calcium 8.1 L (8.4-10.2) mg/dL AST 38 H (14-36) U/L Total Protein 5.1 L (6.3-8.2) g/dL Albumin 2.6 L (3.5-5.0) g/dL CMV IgG Ab Reactive A (Non-Reactive) CMV IgM Ab Reactive A (Non-Reactive) Microbiology - Last 24 Hours (Table) 01/17/21 00:24 Blood Culture - Preliminary Blood No Growth after 24 hours 01/17/21 00:24 Blood Culture - Preliminary Blood No Growth after 24 hours
[2021-01-19] MEDS: HYDROcodone/APAP 5-325MG 1 EACH TAB PO PRN ×2 (00:52→08:32)
[2021-01-19] MEDS: SODIUM CHLORIDE 0.9% 1,000 ML IV SCH (00:55)
[2021-01-19 07:49] VITALS: BP 105/72; PULSE 56; RESP 17; TEMP 98
[2021-01-19] MEDS: HEPARIN SODIUM,PORCINE/PF 5,000 UNIT/0.5 ML SYRINGE SQ SCH ×2 (08:31→08:35)
[2021-01-19] MEDS: IBUPROFEN 600 MG TAB PO SCH (08:31)
[2021-01-19] MEDS: PANTOPRAZOLE 40 MG TABLET PO SCH (08:32)
--- NOTE | 2021-01-19 09:32 | P.DS ---
Providers Date of admission: 01/17/21 02:56 Expected date of discharge: 01/19/21 Attending physician: Jose Calderon Consults: 01/18/21 08:24 Consult Physician Routine Consulting Provider: Faisal Brooke Consult Reason/Comments: Fevere Do you want consulting provider notified?: Yes Primary care physician: [facility] Course: HISTORY OF PRESENT ILLNESS This is a 60 year old female patient of Dr. Loza with past medical history of mild intermittent asthma, gastroesophageal reflux disease and hiatal hernia, hyperlipidemia, hyperglycemia, she had Covid 19 infection in May 2020. She was treated at home symptomatic relief without aggressive treatment be necessary. Patient states that she started having shaking this at nighttime for the past 2 nights. She also has diarrhea and nausea. She has decreased appetite. She denies any shortness of breath. She denies any upper respiratory symptoms. She denies having any blood in her stools. She complains of feeling weak and tired. She denies any recent travel or sick contacts. No animal exposures. She states she was recently finished steroid for rash on her right forearm. She denies any recent antibiotic exposure. Patient came into the [facility] emergency center for evaluation. She was found to be febrile at 101.3, heart rate 92, blood pressure 118/82, pu lse ox 99% on room air. WBC 12.6, hemoglobin 15.5, platelet count 198. Sodium 135 otherwise electrolytes and renal function normal. Blood sugar 147. INR 1.3 liver function tests were normal. LDH 460. C-reactive protein 5.6. Urinalysis clear with nitrate negative leukoesterase small. EKG was sinus tachycardia at 101 bpm. Chest x-ray negative for acute finding. Patient was started on ceftr iaxone which will be discontinued, IV fluids at 130s cc per hour, C. diff, CMV, Sandra-Clarke panel, Legionella and stool culture all ordered. 01/18: Patient continues to have diarrhea up to every 1 hour. She is complaining of right-sided abdominal pain. Imodium added. Consult added for Dr. Brooke and CAT scan of the pelvis ordered. C. difficile toxin was negative. Sandra-Clarke virus IgG positive but IgM is negative. Blood culture is showing no growth at 24 hours and blood cultures in process. Patient has been afebrile, heart rate 66, blood pressure 98/62, pulse ox 98% on room air. 01/19: Patient states that she has bilateral lateral abdominal discomfort. She states her diarrhea is slowing up. She has some tenderness in the epigastric area and nausea. She denies having any fever. She's been afebrile, heart rate 56, blood pressure 105/72, pulse ox 100% on room air. CAT scan of the abdomen and pelvis revealed trace pelvic fluid with no acute abnormality. Lipase 54. Patient will be discharged home today in stable condition. A prescription for Zofran has been provided as well as recommend patient taking Bentyl as needed for abdominal discomfort. ASSESSMENT AND PLAN 1. Sepsis with Nausea, diarrhea most likely secondary to viral gastroenteritis, CMV. 2. Mild intermittent asthma. 3. Gastroesophageal reflux disease. 4. Vitamin D deficiency. 5. History of Covid 19 infection in May 2020. DISCHARGE PLAN Home. Impression and plan of care have been directed as dictated by the signing physician. Megan Jacobo nurse practitioner acting as scribe for signing physician. Patient Condition at Discharge: Good Plan - Discharge Summary Discharge Rx Participant: No New Discharge Prescriptions: New Dicyclomine [Bentyl] 10 mg PO QID PRN #20 capsule PRN Reason: abdominal pain Ondansetron [Zofran] 4 mg PO Q8HR PRN #20 tab PRN Reason: Nausea Continue traMADol HCL 50 mg PO TID PRN PRN Reason: Pain Pantoprazole [Protonix] 40 mg PO QAM Cholecalciferol [Vitamin D3 (25 Mcg = 1000 Iu)] 75 mcg PO DAILY Ascorbic Acid/Elderberry Fruit [Elderberry-Vit C 50-100 mg Chw] 1 tab PO DAILY Ascorbic Acid [Vitamin C] 1,000 mg PO DAILY Vitamin E [Vitamin E (1000 Iu = 450 MG)] 1,000 unit PO DAILY Ibuprofen [Motrin] 800 mg PO TID PRN PRN Reason: Pain Discharge Medication List traMADol HCL 50 mg PO TID PRN 03/16/19 [History] Pantoprazole [Protonix] 40 mg PO QAM 05/02/19 [History] Ascorbic Acid/Elderberry Fruit [Elderberry-Vit C 50-100 mg Chw] 1 tab PO DAILY 08/24/20 [History] Cholecalciferol [Vitamin D3 (25 Mcg = 1000 Iu)] 75 mcg PO DAILY 08/24/20 [History] Ascorbic Acid [Vitamin C] 1,000 mg PO DAILY 01/17/21 [History] Ibuprofen [Motrin] 800 mg PO TID PRN 01/17/21 [History] Vitamin E [Vitamin E (1000 Iu = 450 MG)] 1,000 unit PO DAILY 01/17/21 [History] Dicyclomine [Bentyl] 10 mg PO QID PRN #20 capsule 01/19/21 [Rx] Ondansetron [Zofran] 4 mg PO Q8HR PRN #20 tab 01/19/21 [Rx] Follow up Appointment(s)/Referral(s): Jacinto Hendricks DO [Primary Care Provider] - 1 Week (office closed at time of discharge. Please call Thursday to schedule appointment ) Discharge Disposition: HOME SELF-CARE
[2021-01-19] MEDS ORDERED: AZITHROMYCIN 500 MG TAB PO SCH (14:30)
== END 2021-01-19 14:32 | disposition home or self-care (01) | DRG 872 ==
LOC: EC 23:48 → 4SSUR 01-17 02:56
PROVIDERS: ADMIT Internal Medicine Geriatric Medicine; ATTEND Internal Medicine Geriatric Medicine
DX: A41.9 Sepsis, unspecified organism (principal); E55.9 Vitamin D deficiency, unspecified; A08.4 Viral intestinal infection, unspecified; K21.9 Gastro-esophageal reflux disease without esophagitis; B27.00 Gammaherpesviral mononucleosis without complication; E78.5 Hyperlipidemia, unspecified; J45.20 Mild intermittent asthma, uncomplicated; M19.90 Unspecified osteoarthritis, unspecified site; Z87.19 Personal history of other diseases of the digestive system; Z86.19 Personal history of other infectious and parasitic diseases; Z90.710 Acquired absence of both cervix and uterus; Z91.041 Radiographic dye allergy status; Z87.891 Personal history of nicotine dependence; Z96.652 Presence of left artificial knee joint; Z90.49 Acquired absence of other specified parts of digestive tract; Z79.899 Other long term (current) drug therapy; Z88.1 Allergy status to other antibiotic agents; Z91.048 Other nonmedicinal substance allergy status; Z91.030 Bee allergy status; Z88.5 Allergy status to narcotic agent
CPT/HCPCS: 36415; 71045; 74176; 80053; 81001; 83605; 83615; 83690; 83735; 85025; 86140; 86644; 86645; 86663; 86664; 86665; 87040; 87045; 87046; 87324; 87449; 87636; 93005; 96361; 96374; 96375; 99285

== ENCOUNTER 2021-10-04 15:28 | Emergency (ER) | payer BC ==
[2021-10-04 15:35] VITALS: BP 132/65; PULSE 66; RESP 20; TEMP 98.5
--- NOTE | 2021-10-04 17:24 | XR ---
EXAMINATION TYPE: XR shoulder complete LT DATE OF EXAM: 10/04/2021 COMPARISON: NONE HISTORY: Pain TECHNIQUE: 3 views FINDINGS: I see no fracture nor dislocation. Joint spaces are normal. No sign of a foreign body. Ther e is calcification at the greater tuberosity of the humerus. AC joint is intact IMPRESSION: No fracture. There is evidence of some calcific tendinitis.
--- NOTE | 2021-10-04 18:08 | ED ---
Upper Extremity HPI - General Chief Complaint: Extremity Injury, Upper Stated Complaint: R shoulder injury Time Seen by Provider: 10/04/21 17:58 Source: patient Mode of arrival: ambulatory Limitations: no limitations - History of Present Illness Initial Comments: This is a pleasant 61-year-old, [id number] female who presents emergency department complaining of left shoulder pain which started last night after she lifted up her 65 pound dog. Patient complaining of pain to the anterior aspect and lateral aspect of the left shoulder which is sharp in nature, exacerbated by movement, alleviated by position or rest. No distal paresthesias. No other injuries. Patient is not taking any repetitive movement with this arm. No headache, no fever or chills, no changes in vision or hearing, no sore throat or difficulty with speech, no neck pain, no chest pain or shortness of breath, no abdominal pain, no nausea or vomiting, no changes in urination or bowel movements, no numbness or tingling, no skin rashes or lesions. MD Complaint: Injury to:: left, shoulder - Related Data Home Medications Medication Instructions Recorded Confirmed traMADol HCL 50 mg PO TID PRN 03/16/19 01/17/21 Pantoprazole [Protonix] 40 mg PO QAM 05/02/19 01/17/21 Ascorbic Acid/Elderberry Fruit 1 tab PO DAILY 08/24/20 01/17/21 [Elderberry-Vit C 50-100 mg Chw] Cholecalciferol [Vitamin D3 (25 75 mcg PO DAILY 08/24/20 01/17/21 Mcg = 1000 Iu)] Ascorbic Acid [Vitamin C] 1,000 mg PO DAILY 01/17/21 01/17/21 Ibuprofen [Motrin] 800 mg PO TID PRN 01/17/21 01/17/21 Vitamin E [Vitamin E (1000 Iu = 1,000 unit PO DAILY 01/17/21 01/17/21 450 MG)] Previous Rx's Medication Instructions Recorded Azithromycin [Zithromax] 500 mg PO DAILY 5 Days #5 tab 01/19/21 Dicyclomine [Bentyl] 10 mg PO QID PRN #20 capsule 01/19/21 Ondansetron [Zofran] 4 mg PO Q8HR PRN #20 tab 01/19/21 Ibuprofen [Motrin] 600 mg PO Q8HR PRN #30 tab 10/04/21 tiZANidine HCL [Zanaflex] 4 mg PO Q6HR PRN #24 tab 10/04/21 Allergies Allergy/AdvReac Type Severity Reaction Status Date / Time adhesive tape Allergy blisters Verified 10/04/21 15:35 skin amoxicillin [Amoxicillin] Allergy Rash/Hives Verified 10/04/21 15:35 bee pollen Allergy Anaphylaxis Verified 10/04/21 15:35 hydromorphone HCl Allergy "I don't Verified 10/04/21 15:35 [From Dilaudid] feel like I can breathe right,drops b/p" Iodinated Contrast Media Allergy Anaphylaxis Verified 10/04/21 15:35 [Iodinated Contrast- Oral and IV Dye] plastic Allergy Rash/Hives Uncoded 10/04/21 15:35 Review of Systems ROS Statement: Those systems with pertinent positive or pertinent negative responses have been documented in the HPI. ROS Other: All systems not noted in ROS Statement are negative. Past Medical History Past Medical History: Asthma, GERD/Reflux, Osteoarthritis (OA) Additional Past Medical History / Comment(s): cough @[facility] since Mar., says has narrow "opening" & told probably needs stretching, hiatal hernia, had covid Dec., hypoglycemia History of Any Multi-Drug Resistant Organisms: None Reported Past Surgical History: Bladder Surgery, Cholecystectomy, Hysterectomy, Joint Replacement, Orthopedic Surgery, Tonsillectomy Additional Past Surgical History / Comment(s): lt knee replacement,lt heel spur remove, trigger lft thumb,arthroscopies alvarez knees,abdominal adhesions removed, fatty tumor removed from abd. Past Anesthesia/Blood Transfusion Reactions: Motion Sickness, Postoperative Nausea & Vomiting (PONV) Additional Past Anesthesia/Blood Transfusion Reaction / Comment(s): vertigo Past Psychological History: No Psychological Hx Reported Smoking Status: Former smoker Past Alcohol Use History: None Reported Past Drug Use History: None Reported - Past Family History Mother Family Medical History: Cancer Additional Family Medical History / Comment(s): lung General Exam Limitations: no limitations General appearance: alert, in no apparent distress Head exam: Present: atraumatic, normocephalic, normal inspection Eye exam: Present: normal appearance, PERRL, EOMI. Absent: scleral icterus, conjunctival injection, periorbital swelling ENT exam: Present: normal exam, mucous membranes moist Neck exam: Present: normal inspection, full ROM. Absent: tenderness, meningismus, lymphadenopathy Respiratory exam: Present: normal lung sounds bilaterally. Absent: respiratory distress, wheezes, rales, rhonchi, stridor Cardiovascular Exam: Present: regular rate, normal rhythm, normal heart sounds. Absent: systolic murmur, diastolic murmur, rubs, gallop, clicks GI/Abdominal exam: Present: soft, normal bowel sounds. Absent: distended, tenderness, guarding, rebound, rigid Extremities exam: Present: normal inspection, tenderness, normal capillary refill, other (Soft tissue tenderness to lateral aspect of the left shoulder into the subacromial area. Range of motion limited by pain. No crepitus. Positive drop arm sign. Range of motion limited in all planes. Distal sensation intact. No proximal or distal tenderness. Pulses intact.). Absent: full ROM, pedal edema, joint swelling, calf tenderness Back exam: Present: normal inspection Neurological exam: Present: alert, oriented X3, CN II-XII intact, normal gait. Absent: motor sensory deficit Psychiatric exam: Present: normal affect, normal mood Skin exam: Present: warm, dry, intact, normal color. Absent: rash, cyanosis, diaphoretic, erythema, urticaria, vesicles, petechiae, pallor, mottled, abrasion Course Vital Signs 10/04/21 15:33 Temperature 98.5 F Pulse Rate 66 Respiratory 20 Rate Blood Pressure 132/65 O2 Sat by Pulse 97 Oximetry Medical Decision Making - Medical Decision Making Patient presents with what appears to be soft tissue injury of the left shoulder. X-rays showed mild degenerative change. Discussed all findings with the patient. Discussed treatment plan. All questions answered. We'll treat with essentially conservative therapy plus NSAIDs, muscle relaxers, patient are to takes Ultram at home. Dr. Cortés. Discussed range of motion exercises. Patient was told to return to the ER for any signs or symptoms worsen. Told to return immediately if any other problems arise. All questions answered. Treatment plan discussed. Patient in agreement Every effort has been made to ensure accuracy of this dictation. However, due to the limitations of electronic medical records and dictation devices, errors in charting still occur. Supervising physician is Dr. Casey - Radiology Data Radiology results: report reviewed, image reviewed Disposition Clinical Impression: Strain of left shoulder Disposition: HOME SELF-CARE Condition: Stable Instructions (If sedation given, give patient instructions): Rotator Cuff Injury (ED) Additional Instructions: Range of motion exercises as discussed. Make a follow-up appointment with Dr. Cortés. Continue her home pain medication as directed by your physician. At in the anti-inflammatory medication and the muscle relaxer. Ice 20 minutes on and off for times daily for the next 48 hours. He can then go to heat 20 minutes on and off. Return to the ER immediately if any symptoms worsen, new symptoms arise, or any other problems develop. Prescriptions: Ibuprofen [Motrin] 600 mg PO Q8HR PRN #30 tab PRN Reason: Pain tiZANidine HCL [Zanaflex] 4 mg PO Q6HR PRN #24 tab PRN Reason: Muscle Pain Is patient prescribed a controlled substance at d/c from ED?: No Referrals: Troy Cortés MD [REFERRING] - 1-2 days Time of Disposition: 18:07
== END 2021-10-04 18:32 | disposition home or self-care (01) ==
LOC: EC 15:28
DX: S46.912A Strain of unspecified muscle, fascia and tendon at shoulder and upper arm level, left arm, initial encounter (principal); J45.909 Unspecified asthma, uncomplicated; K21.9 Gastro-esophageal reflux disease without esophagitis; Z79.83 Long term (current) use of bisphosphonates; Z87.891 Personal history of nicotine dependence; Z88.0 Allergy status to penicillin; Z91.030 Bee allergy status; Z88.5 Allergy status to narcotic agent; Z91.041 Radiographic dye allergy status; Z91.09 Other allergy status, other than to drugs and biological substances
CPT/HCPCS: 99283